=== PATIENT | male | born 1945 | race Caucasian/White ===

== ENCOUNTER 2017-06-21 16:26 | Inpatient (IN) ==
--- NOTE | 2017-06-22 16:46 | Internal Med History&Physical ---
Date of Encounter: 06/22/17 Time of Encounter: 16:44 Assessment and Plan (1) Cerebrovascular accident Current visit: No Status: Acute Patient's had a CVA. Please see CT reports etc. Qualifiers: Laterality of affected vessel: left Qualified Code(s): I63.312 - Cerebral infarction due to thrombosis of left middle cerebral artery (2) Sleep apnea Current visit: Yes Status: Acute No evidence he was using CPAP. But I will discuss this further. In reviewing the [facility] chart there was no data that would show that he was using CPAP Qualifiers: Sleep apnea type: other type Qualified Code(s): G47.39 - Other sleep apnea Internal Medicine - H&P: HPI Chief complaint: Mr. Sexton arrived here from [place] after suffering what appears Admitted From: Hospital to Hospital Transfer Plans for Post Hospital Care: Home History of present illness: Mr. Sexton is a 72 year old male Should see her for rehabilitation. He is doing fairly well. He has oxygen and I am going to take it off and check his room air sats. In addition he can elevate his left leg against gravity and has some movement in his left upper extremity. His speech is clear and he states no trouble swallowing Past Med Surg Social Fam HX - Past Medical History Medical history: coronary artery disease, CVA (Sleep apnea is listed as a diagnosis), diabetes, hyperlipidemia, hypertension, TIA Psychiatric history: no psych history - Social History Smoking Status: Former smoker Smokeless Tobacco Status: No Alcohol use: none Drug use: none Internal Medicine - H&P: Meds Amlodipine Besylate 10 mg PO DAILY 06/16/17 [History] Aspirin [Lo-Dose Aspirin EC] 81 mg PO DAILY 06/16/17 [History] Atorvastatin Calcium [Lipitor] 80 mg PO HS 06/16/17 [History] Carvedilol [Coreg] 25 mg PO BID 06/16/17 [History] Insulin ASPART [NovoLOG] 0 unit SQ TIDWM 06/16/17 [History] Insulin DETEMIR [Levemir] 0 unit SQ HS 06/16/17 [History] Losartan Potassium [Cozaar] 100 mg PO DAILY 06/16/17 [History] Metformin HCl [Fortamet] 500 mg PO DAILY 06/16/17 [History] Multivit-Min/Iron Fum/Folic AC [Qhkae-Wfvuioz-Qztavkzz Tablet] 1 each PO DAILY 06/16/17 [History] Omeprazole 20 mg PO DAILY 06/16/17 [History] Potassium Chloride [Klor-Con] 20 meq PO DAILY 06/16/17 [History] Potassium Citrate [Urocit-K] 10 meq PO DAILY 06/16/17 [History] Saxagliptin HCl [Onglyza] 5 mg PO DAILY 06/16/17 [History] buPROPion HCl [Zyban] 150 mg PO DAILY 06/16/17 [History] hydroCHLOROthiazide [Hydrochlorothiazide] 25 mg PO DAILY 06/16/17 [History] 3 Allergy/AdvReac Type Severity Reaction Status Date / Time No Known Allergies Allergy Verified 06/15/17 07:15 All Systems PM: A 10-system review of systems was performed and is negative for pertinent findings except as documented above in the HPI. - Constitutional Constitutional: as per HPI - EENT Eyes: as per HPI Ears: as per HPI Nose, mouth and throat: as per HPI - Breasts Breasts: as per HPI - Cardiovascular Cardiovascular ROS IM: as per HPI - Gastrointestinal Gastrointestinal: as per HPI - Genitourinary Genitourinary ROS male: as per HPI - Musculoskeletal Musculoskeletal ROS IM: other (Left sided upper and lower extremity weakness) - Integumentary Integumentary IM: as per HPI - Neurological Neurological ROS: focal weakness Additional comments: Said patient has left sided upper and lower extremity weakness - Psychiatric Psychiatric: as per HPI - Endocrine Endocrine IM: as per HPI Additional comments: Nation diabetic - Hematologic/Lymphatic Hematologic/Lymphatic: as per HPI - Allergic/Immunologic Allergic/Immunologic: as per HPI - Head Head exam: Present: atraumatic, normocephalic - Neck Neck exam general surgery: Present: supple, trachea midline. Absent: lymphadenopathy - Respiratory Respiratory exam: Present: CTAB. Absent: accessory muscle use, rales, rhonchi, wheezes - GI/Abdominal GI/Abdominal exam: Present: normal bowel sounds, soft, no peritoneal signs. Absent: distended, tenderness Internal Med - H&P Results - Labs Labs: Pending
[2017-06-22] MEDS ORDERED: Dextrose Gel 15 GM PO PRN ×2 (17:46)
[2017-06-22] MEDS ORDERED: D5% in Water 1,000 ML IVC PRN (17:46)
[2017-06-22] MEDS ORDERED: *HR* Dextrose 50 % in Water (Syg) 50 ML SYRINGE IVP PRN (17:46)
[2017-06-22] MEDS: Insulin LISPRO 300 UNITS/3 ML VIAL SQ SCH (21:17)
[2017-06-22] MEDS: *HR* Metformin 500 MG TABLET PO SCH (21:17)
[2017-06-23 05:37] LABS: Basophils # 0.1 K/mcL (0.0-0.2); Basophils % 0.7 %; Eosinophils # 0.4 K/mcL (0.0-0.6); Hematocrit 35.7 % (37.5-50.1); Hemoglobin 11.5 g/dL (12.9-16.9); Immature Granulocytes % 0.2 % (0-4); Lymphocytes # 1.4 K/mcL (0.6-4.6); Mean Corpuscular HGB Conc 32.2 g/dL (31.6-35.5); Mean Corpuscular Hemoglobin 25.5 pg (28.0-33.3); Mean Corpuscular Volume 79.2 fL (83.0-100.0); Mean Platelet Volume 10.4 fL (9.4-12.4); Monocytes # 0.5 K/mcL (0.0-1.3); Monocytes % 6.6 %; Neutrophils # 5.7 K/mcL (1.6-8.9); Platelet Count 267 K/mcL (140-400); Red Blood Count 4.51 M/mcL (4.19-5.50); Red Cell Distribution Width 16.1 % (11.5-14.5); Segmented Neutrophils % 70.5 %
[2017-06-23 05:42] LABS: INR 1.3; Prothrombin Time 14.4 Seconds (9.4-12.1)
[2017-06-23 05:45] LABS: Activated Partial Thrombo Time 30.4 Seconds (26.0-36.0)
[2017-06-23 05:51] LABS: BUN/Creatinine Ratio 20 (6-26); Blood Urea Nitrogen 18 mg/dL (8-26); Calcium 8.9 mg/dL (8.6-10.8); Carbon Dioxide 24 mEq/L (19-29); Chloride 103 mEq/L (98-109); Glucose 167 mg/dL (70-99); Osmolality,Calculated 296 (280-300); Potassium 3.7 mEq/L (3.5-4.5); Sodium 140 mEq/L (136-145); eGFR For African Americans > 60 (> 60); eGFR For Non-African Americans > 60 (> 60)
[2017-06-23] MEDS: hydroCHLOROthiazide 25 MG TABLET PO SCH (08:06)
[2017-06-23] MEDS: BuPROPion SR (12 HR) 150 MG TABLET PO SCH (08:06)
[2017-06-23] MEDS: Multivit/Ca/Min/Fe/FA 1 TAB TABLET PO SCH (08:06)
[2017-06-23] MEDS: amLODIPine 5 MG TABLET PO SCH (08:07)
[2017-06-23] MEDS: Potassium Citrate 10 MEQ TABLET.ER PO SCH (08:07)
[2017-06-23] MEDS: Aspirin Enteric Coated 325 MG Tablet PO SCH (08:07)
[2017-06-23] MEDS: *HR* Metformin 500 MG TABLET PO SCH ×2 (08:07→20:18)
[2017-06-23] MEDS: Insulin LISPRO 300 UNITS/3 ML VIAL SQ SCH ×4 (08:07→20:18)
--- NOTE | 2017-06-23 11:57 | Internal Med Progress Note ---
Date of Encounter: 06/23/17 Time of Encounter: 11:55 - Assessment and plan (1) Cerebrovascular accident Current Visit: No Status: Inactive Assessment and plan: Patient has ischemic CVA. His function though is good as a weakness on the left side and is working currently with a therapeutic Qualifiers: Laterality of affected vessel: left Qualified Code(s): I63.312 - Cerebral infarction due to thrombosis of left middle cerebral artery (2) Sleep apnea Current Visit: Yes Status: Acute Assessment and plan: History of sleep apnea but did not see anything where they have been using CPAP Qualifiers: Sleep apnea type: other type Qualified Code(s): G47.39 - Other sleep apnea - Time Spent With Patient less than 15 minutes - Subjective Interval history: Therapy has begun vital signs are stable patient is eating well and please see PT and OT and TR note - Constitutional Vitals: Temp Pulse Resp BP Pulse Ox 98.6 F 79 17 146/64 93 06/23/17 10:44 06/23/17 10:44 06/23/17 10:44 06/23/17 10:44 06/23/17 10:44 - Head Head exam: Present: atraumatic, normal inspection, normocephalic - Neck Neck exam general surgery: Present: supple, trachea midline. Absent: lymphadenopathy - Respiratory Respiratory exam: Present: CTAB. Absent: accessory muscle use, rales, rhonchi, wheezes - Cardiovascular Cardiovascular exam: Present: RRR, +S1, +S2. Absent: diastolic murmur, gallop, rubs, systolic murmur Internal Medicine: Result - Labs CBC & Chem 7: 06/23/17 05:20 06/23/17 05:20 Labs: Short CBC 06/23/17 Range/Units 05:20 WBC 8.1 (4.3-11.1) K/mcL Hgb 11.5 L (12.9-16.9) g/dL Hct 35.7 L (37.5-50.1) % Plt Count 267 (140-400) K/mcL Neutrophils # 5.7 (1.6-8.9) K/mcL BMP 06/23/17 05:20 Sodium 140 Potassium 3.7 Chloride 103 Carbon Dioxide 24 BUN 18 Creatinine 0.92 Glucose 167 H Calcium 8.9 Lab looks good - ABG Interpretation ABG results: PT/INR, D-dimer PT 14.4 Seconds (9.4-12.1) H 06/23/17 05:20 - VTE Documentation of Mechanical Device: Graduated compression elastic hosiery Consult Discharge Plan - Plan [facility]: [facility] [Primary Care Provider] -
[2017-06-23] MEDS: Benzonatate 100 MG CAPSULE PO PRN (20:18)
[2017-06-24] MEDS: Benzonatate 100 MG CAPSULE PO PRN ×2 (06:39→17:36)
[2017-06-24] MEDS: hydroCHLOROthiazide 25 MG TABLET PO SCH (08:41)
[2017-06-24] MEDS: Aspirin Enteric Coated 325 MG Tablet PO SCH (08:41)
[2017-06-24] MEDS: amLODIPine 5 MG TABLET PO SCH (08:41)
[2017-06-24] MEDS: BuPROPion SR (12 HR) 150 MG TABLET PO SCH (08:41)
[2017-06-24] MEDS: Multivit/Ca/Min/Fe/FA 1 TAB TABLET PO SCH (08:41)
[2017-06-24] MEDS: *HR* Metformin 500 MG TABLET PO SCH ×2 (08:41→22:04)
[2017-06-24] MEDS: Potassium Citrate 10 MEQ TABLET.ER PO SCH (08:41)
[2017-06-24] MEDS: NON-FORMULARY MEDICATION 1 EACH EACH PO SCH (08:42)
[2017-06-24] MEDS: Insulin LISPRO 300 UNITS/3 ML VIAL SQ SCH ×4 (08:42→22:48)
--- NOTE | 2017-06-24 14:48 | Internal Med Progress Note ---
Date of Encounter: 06/24/17 Time of Encounter: 14:42 - Assessment and plan (1) Cerebrovascular accident Current Visit: Yes Status: Inactive Assessment and plan: CVA is what brought the patient here. He has, some risk factors and some scattered vascular disease. Qualifiers: Laterality of affected vessel: left Qualified Code(s): I63.312 - Cerebral infarction due to thrombosis of left middle cerebral artery (2) Sleep apnea Current Visit: Yes Status: Acute Assessment and plan: Sleep apnea by history uses CPAP at home at night Qualifiers: Sleep apnea type: other type Qualified Code(s): G47.39 - Other sleep apnea - Time Spent With Patient less than 15 minutes - Subjective Interval history: Therapy has begun vital signs are stable patient is eating well and please see PT and OT and TR note. I am somewhat concerned whether he has any degree of dysphagia. He attributes coughing after eating sometimes to the Will discuss with speech and also he said his coughing is improved on the Tessalon Perles. I am going to do a CT of the chest just to rule out any sort of infiltrate or infection. . teeth not fitting properly - Constitutional Vitals: Temp Pulse Resp BP Pulse Ox 98.2 F 90 16 120/85 92 06/24/17 07:51 06/24/17 07:51 06/23/17 19:00 06/24/17 07:51 06/24/17 07:51 - Head Head exam: Present: atraumatic, normal inspection, normocephalic - Neck Neck exam general surgery: Present: supple, trachea midline. Absent: lymphadenopathy - Respiratory Respiratory exam: Present: CTAB. Absent: accessory muscle use, rales, rhonchi, wheezes - Cardiovascular Cardiovascular exam: Present: RRR, +S1, +S2. Absent: diastolic murmur, gallop, rubs, systolic murmur Internal Medicine: Result - Labs CBC & Chem 7: 06/23/17 05:20 06/23/17 05:20 Labs: Lab is stable - ABG Interpretation ABG results: PT/INR, D-dimer PT 14.4 Seconds (9.4-12.1) H 06/23/17 05:20 - VTE Documentation of Mechanical Device: Graduated compression elastic hosiery Consult Discharge Plan - Plan [facility]errals: [facility] [Primary Care Provider] -
[2017-06-25] MEDS: Insulin LISPRO 300 UNITS/3 ML VIAL SQ SCH ×4 (07:56→21:24)
[2017-06-25] MEDS: hydroCHLOROthiazide 25 MG TABLET PO SCH (08:05)
[2017-06-25] MEDS: *HR* Metformin 500 MG TABLET PO SCH ×2 (08:05→21:22)
[2017-06-25] MEDS: Potassium Citrate 10 MEQ TABLET.ER PO SCH (08:05)
[2017-06-25] MEDS: Aspirin Enteric Coated 325 MG Tablet PO SCH (08:06)
[2017-06-25] MEDS: BuPROPion SR (12 HR) 150 MG TABLET PO SCH (08:06)
[2017-06-25] MEDS: amLODIPine 5 MG TABLET PO SCH (08:06)
[2017-06-25] MEDS: Multivit/Ca/Min/Fe/FA 1 TAB TABLET PO SCH (08:06)
[2017-06-25] MEDS: NON-FORMULARY MEDICATION 1 EACH EACH PO SCH (08:07)
[2017-06-25] MEDS: Benzonatate 100 MG CAPSULE PO PRN (12:25)
--- NOTE | 2017-06-25 15:51 | Internal Med Progress Note ---
Date of Encounter: 06/25/17 Time of Encounter: 12:20 - Assessment and plan (1) Cerebrovascular accident (CVA) due to embolism of left middle cerebral artery Current Visit: Yes Status: Acute Assessment and plan: Improving. Will continue with antiplately therapy, control HTN, continue therapies. I encouraged him to participate in therapies as to the best of his ability. (2) Cough Current Visit: Yes Status: Acute Assessment and plan: Etiology is undetermined. CT chest negative for pneumonia. I encouraged him to monitor to associate with drinking problems, etc. Will follow and make sure nursing assesses. Will re-evaliuate swallow if suspicion exists. (3) Sleep apnea Current Visit: Yes Status: Acute Assessment and plan: Continue as at home with CPAP. Qualifiers: Qualified Code(s): G47.30 - Sleep apnea, unspecified - Subjective Interval history: Still coughing quite a bit. He cannot associate with drinking or eating but daughter believes that he is couighing more with drinking. Denies other acute problems. No fever, chills, dyspnea, etc. Denies other problems per ROS. Moved bowels with normal BM yesterday. - Constitutional Vitals: Temp Pulse Resp BP Pulse Ox 97.8 F 74 18 146/84 93 06/25/17 07:40 06/25/17 07:40 06/25/17 07:40 06/25/17 07:40 06/25/17 07:40 - Head Head exam: Present: atraumatic, normocephalic - Eye Eye exam: Present: PERRL, conjuntiva pink, sclera anicteric Pupils: Present: PERRL - Respiratory Respiratory exam: Present: CTAB. Absent: accessory muscle use, rales, rhonchi, wheezes - Cardiovascular Cardiovascular exam: Present: RRR. Absent: diastolic murmur, rubs, systolic murmur - GI/Abdominal GI/Abdominal exam: Present: normal bowel sounds, soft, no peritoneal signs. Absent: distended, tenderness Additional comments: Obese and therefore difficult to examine. Examined upright in chair. - Extremities Exam Extremities exam: Present: warm, radial pulses palpable and symmetrical. Absent : calf tenderness, cyanotic, pedal edema - Neurological Exam Neurological exam: Present: CN II-XII intact, oriented X3, facial droop. Absent : speech deficit Additional comments: Has mild to moderate right hemiparesis. Per patient, this is significantly improved vs. acute symptoms 10 days ago. Has no speech changes, mild right facial dropp, 45 right upper extremity weakness, 4/5 right lower extremity weakness. Internal Medicine: Result - Labs CBC & Chem 7: 06/23/17 05:20 06/23/17 05:20 - ABG Interpretation ABG results: PT/INR, D-dimer PT 14.4 Seconds (9.4-12.1) H 06/23/17 05:20 - Impressions Impressions Chest CT 06/24/17 14:57 IMPRESSION: No acute intrathoracic abnormality. Small hiatal hernia. D/ / Ramirez Valadez MD / Ramirez Valadez MD Interpreting Provider: Ramirez Valadez MD - VTE Documentation of Mechanical Device: Graduated compression elastic hosiery Consult Discharge Plan - Plan [facility]errals: [facility] [Primary Care Provider] -
[2017-06-26] MEDS: Multivit/Ca/Min/Fe/FA 1 TAB TABLET PO SCH (07:56)
[2017-06-26] MEDS: *HR* Metformin 500 MG TABLET PO SCH ×2 (07:57→21:31)
[2017-06-26] MEDS: BuPROPion SR (12 HR) 150 MG TABLET PO SCH (07:57)
[2017-06-26] MEDS: Potassium Citrate 10 MEQ TABLET.ER PO SCH (07:57)
[2017-06-26] MEDS: Aspirin Enteric Coated 325 MG Tablet PO SCH (07:58)
[2017-06-26] MEDS: amLODIPine 5 MG TABLET PO SCH (07:58)
[2017-06-26] MEDS: Insulin LISPRO 300 UNITS/3 ML VIAL SQ SCH ×4 (07:59→21:33)
[2017-06-26] MEDS: hydroCHLOROthiazide 25 MG TABLET PO SCH (08:00)
[2017-06-26] MEDS: NON-FORMULARY MEDICATION 1 EACH EACH PO SCH (08:00)
--- NOTE | 2017-06-26 15:34 | Internal Med Progress Note ---
Date of Encounter: 06/26/17 Time of Encounter: 12:55 - Assessment and plan (1) Cerebrovascular accident (CVA) due to embolism of left middle cerebral artery Current Visit: Yes Status: Acute Assessment and plan: Still slightly improved, vs. yesterday. (2) Cough Current Visit: Yes Status: Acute Assessment and plan: Still with multiple problems with cough. He and nurses aware that he shouild communicate if related to eating or drinking. He was doing better with Tessalon but ran out so we switched to Robitussin DM today. Tessalon should be returning, shortly per pharmacy's report to nursing. (3) Sleep apnea Current Visit: Yes Status: Acute Qualifiers: Sleep apnea type: unspecified type Qualified Code(s): G47.30 - Sleep apnea , unspecified - Subjective Interval history: More upbeat. Denies acute issues. Show me what he can do with his hand, vs. yesterday. - Constitutional Vitals: Temp Pulse Resp BP Pulse Ox 98.0 F 80 18 132/90 93 06/26/17 08:02 06/26/17 08:02 06/26/17 08:02 06/26/17 08:02 06/26/17 08:02 - Head Head exam: Present: atraumatic, normocephalic - Eye Eye exam: Present: PERRL, conjuntiva pink, sclera anicteric Pupils: Present: PERRL - Neck Neck exam general surgery: Present: supple, trachea midline - Respiratory Respiratory exam: Present: CTAB. Absent: accessory muscle use, rales, rhonchi, wheezes - Cardiovascular Cardiovascular exam: Present: RRR. Absent: diastolic murmur, systolic murmur - GI/Abdominal GI/Abdominal exam: Present: normal bowel sounds, soft, no peritoneal signs. Absent: distended, tenderness - Extremities Exam Extremities exam: Present: warm, radial pulses palpable and symmetrical. Absent : calf tenderness, cyanotic, pedal edema Internal Medicine: Result - Labs CBC & Chem 7: 06/23/17 05:20 06/23/17 05:20 - ABG Interpretation ABG results: PT/INR, D-dimer PT 14.4 Seconds (9.4-12.1) H 06/23/17 05:20 - VTE Documentation of Mechanical Device: Graduated compression elastic hosiery Consult Discharge Plan - Plan Referrals: [facility],PCP [Primary Care Provider] -
[2017-06-26] MEDS: Benzonatate 100 MG CAPSULE PO PRN (17:57)
[2017-06-27] MEDS: Benzonatate 100 MG CAPSULE PO PRN ×2 (01:50→21:47)
[2017-06-27 06:18] LABS: Basophils # 0.1 K/mcL (0.0-0.2); Basophils % 0.9 %; Eosinophils # 0.5 K/mcL (0.0-0.6); Hematocrit 34.1 % (37.5-50.1); Hemoglobin 11.2 g/dL (12.9-16.9); Immature Granulocytes % 0.2 % (0-4); Lymphocytes # 1.2 K/mcL (0.6-4.6); Lymphocytes % 14.8 %; Mean Corpuscular HGB Conc 32.8 g/dL (31.6-35.5); Mean Corpuscular Hemoglobin 25.9 pg (28.0-33.3); Mean Corpuscular Volume 78.9 fL (83.0-100.0); Mean Platelet Volume 10.6 fL (9.4-12.4); Monocytes # 0.6 K/mcL (0.0-1.3); Monocytes % 6.8 %; Neutrophils # 5.9 K/mcL (1.6-8.9); Platelet Count 249 K/mcL (140-400); Red Blood Count 4.32 M/mcL (4.19-5.50); Red Cell Distribution Width 16.4 % (11.5-14.5); Segmented Neutrophils % 71.3 %
[2017-06-27 06:29] LABS: BUN/Creatinine Ratio 17 (6-26); Blood Urea Nitrogen 16 mg/dL (8-26); Calcium 9.1 mg/dL (8.6-10.8); Carbon Dioxide 26 mEq/L (19-29); Chloride 102 mEq/L (98-109); Glucose 125 mg/dL (70-99); Osmolality,Calculated 293 (280-300); Potassium 3.7 mEq/L (3.5-4.5); Sodium 140 mEq/L (136-145); eGFR For African Americans > 60 (> 60); eGFR For Non-African Americans > 60 (> 60)
[2017-06-27] MEDS: Multivit/Ca/Min/Fe/FA 1 TAB TABLET PO SCH (10:22)
[2017-06-27] MEDS: *HR* Metformin 500 MG TABLET PO SCH ×2 (10:22→21:47)
[2017-06-27] MEDS: BuPROPion SR (12 HR) 150 MG TABLET PO SCH (10:22)
[2017-06-27] MEDS: Aspirin Enteric Coated 325 MG Tablet PO SCH (10:23)
[2017-06-27] MEDS: Potassium Citrate 10 MEQ TABLET.ER PO SCH (10:23)
[2017-06-27] MEDS: amLODIPine 5 MG TABLET PO SCH (10:23)
[2017-06-27] MEDS: hydroCHLOROthiazide 25 MG TABLET PO SCH (10:24)
[2017-06-27] MEDS: Insulin LISPRO 300 UNITS/3 ML VIAL SQ SCH ×4 (10:24→21:13)
[2017-06-27] MEDS: NON-FORMULARY MEDICATION 1 EACH EACH PO SCH (10:24)
--- NOTE | 2017-06-27 14:43 | Internal Med Progress Note ---
Date of Encounter: 06/27/17 Time of Encounter: 14:41 - Assessment and plan (1) Cerebrovascular accident Current Visit: Yes Status: Inactive Assessment and plan: Patient is undergoing rehabilitation with PT OT TR and speech Qualifiers: Laterality of affected vessel: left Qualified Code(s): I63.312 - Cerebral infarction due to thrombosis of left middle cerebral artery (2) Sleep apnea Current Visit: Yes Status: Acute Assessment and plan: Patient has noted this by history. Was not doing it at the referring hospital Qualifiers: Sleep apnea type: unspecified type Qualified Code(s): G47.30 - Sleep apnea , unspecified - Time Spent With Patient less than 15 minutes - Subjective Interval history: Therapy has begun vital signs are stable patient is eating well and please see PT and OT and TR note. I am somewhat concerned whether he has any degree of dysphagia. He attributes coughing after eating sometimes to the Will discuss with speech and also he said his coughing is improved on the Tessalon Perles. I am going to do a CT of the chest just to rule out any sort of infiltrate or infection. . teeth not fitting properly Mr. Dominic Sexton is getting bouts minimal assist to contact guard dissipating in all therapies and is showing improvement. - Constitutional Vitals: Temp Pulse Resp BP Pulse Ox 98.2 F 89 16 152/71 95 06/27/17 07:09 06/27/17 07:09 06/27/17 07:09 06/27/17 07:09 06/27/17 12:00 - Head Head exam: Present: atraumatic, normal inspection, normocephalic - Neck Neck exam general surgery: Present: supple, trachea midline. Absent: lymphadenopathy - Respiratory Respiratory exam: Present: CTAB. Absent: accessory muscle use, rales, rhonchi, wheezes - Cardiovascular Cardiovascular exam: Present: RRR, +S1, +S2. Absent: diastolic murmur, gallop, rubs, systolic murmur - GI/Abdominal GI/Abdominal exam: Present: normal bowel sounds, soft, no peritoneal signs. Absent: distended, tenderness Internal Medicine: Result - Labs CBC & Chem 7: 06/27/17 05:25 06/27/17 05:25 Labs: Short CBC 06/27/17 Range/Units 05:25 WBC 8.2 (4.3-11.1) K/mcL Hgb 11.2 L (12.9-16.9) g/dL Hct 34.1 L (37.5-50.1) % Plt Count 249 (140-400) K/mcL Neutrophils # 5.9 (1.6-8.9) K/mcL BMP 06/27/17 05:25 Sodium 140 Potassium 3.7 Chloride 102 Carbon Dioxide 26 BUN 16 Creatinine 0.95 Glucose 125 H Calcium 9.1 Lab looks stable - ABG Interpretation ABG results: PT/INR, D-dimer PT 14.4 Seconds (9.4-12.1) H 06/23/17 05:20 - VTE Documentation of Mechanical Device: Graduated compression elastic hosiery Consult Discharge Plan - Plan [facility]: [facility] [Primary Care Provider] -
[2017-06-28] MEDS: Aspirin Enteric Coated 325 MG Tablet PO SCH (08:22)
[2017-06-28] MEDS: hydroCHLOROthiazide 25 MG TABLET PO SCH (08:22)
[2017-06-28] MEDS: NON-FORMULARY MEDICATION 1 EACH EACH PO SCH (08:22)
[2017-06-28] MEDS: Insulin LISPRO 300 UNITS/3 ML VIAL SQ SCH ×4 (08:22→22:30)
[2017-06-28] MEDS: amLODIPine 5 MG TABLET PO SCH (08:22)
[2017-06-28] MEDS: Potassium Citrate 10 MEQ TABLET.ER PO SCH (08:22)
[2017-06-28] MEDS: Multivit/Ca/Min/Fe/FA 1 TAB TABLET PO SCH (08:22)
[2017-06-28] MEDS: *HR* Metformin 500 MG TABLET PO SCH ×2 (08:23→22:30)
[2017-06-28] MEDS: BuPROPion SR (12 HR) 150 MG TABLET PO SCH (08:23)
--- NOTE | 2017-06-28 13:38 | Internal Med Progress Note ---
Date of Encounter: 06/28/17 Time of Encounter: 13:36 - Assessment and plan (1) Sleep apnea Current Visit: Yes Status: Acute Assessment and plan: Use BiPAP at night. Qualifiers: Sleep apnea type: unspecified type Qualified Code(s): G47.30 - Sleep apnea , unspecified (2) Cerebrovascular accident (CVA) due to embolism of left middle cerebral artery Current Visit: Yes Status: Acute Assessment and plan: patient is here for CVA with em (3) Cough Current Visit: Yes Status: Acute Assessment and plan: Cough did a CT. In addition have speech see him to rule out any sort of aspiration. This existed prior to his coming here. And I did start some Tessalon Perles he states it is improved - Time Spent With Patient less than 15 minutes - Subjective Interval history: Therapy has begun vital signs are stable patient is eating well and please see PT and OT and TR note. I am somewhat concerned whether he has any degree of dysphagia. He attributes coughing after eating sometimes to the Will discuss with speech and also he said his coughing is improved on the Tessalon Perles. I am going to do a CT of the chest just to rule out any sort of infiltrate or infection. . teeth not fitting properly Mr. Dominic Sexton is getting bouts minimal assist to contact guard dissipating in all therapies and is showing improvement.. - Constitutional Vitals: Temp Pulse Resp BP Pulse Ox 97.7 F 79 20 145/78 95 06/28/17 07:34 06/28/17 07:34 06/28/17 07:34 06/28/17 07:34 06/28/17 07:34 - Head Head exam: Present: atraumatic, normal inspection, normocephalic - Neck Neck exam general surgery: Present: supple, trachea midline. Absent: lymphadenopathy - Respiratory Respiratory exam: Present: CTAB. Absent: accessory muscle use, rales, rhonchi, wheezes - Cardiovascular Cardiovascular exam: Present: RRR, +S1, +S2. Absent: diastolic murmur, gallop, rubs, systolic murmur Internal Medicine: Result - Labs CBC & Chem 7: 06/27/17 05:25 06/27/17 05:25 - ABG Interpretation ABG results: PT/INR, D-dimer PT 14.4 Seconds (9.4-12.1) H 06/23/17 05:20 - VTE Documentation of Mechanical Device: Graduated compression elastic hosiery Consult Discharge Plan - Plan [facility]errals: [facility] [Primary Care Provider] -
[2017-06-28] MEDS: Benzonatate 100 MG CAPSULE PO PRN (17:53)
[2017-06-29] MEDS: *HR* Metformin 500 MG TABLET PO SCH ×2 (09:57→21:32)
[2017-06-29] MEDS: BuPROPion SR (12 HR) 150 MG TABLET PO SCH (09:57)
[2017-06-29] MEDS: Insulin LISPRO 300 UNITS/3 ML VIAL SQ SCH ×3 (09:57→21:32)
[2017-06-29] MEDS: amLODIPine 5 MG TABLET PO SCH (09:57)
[2017-06-29] MEDS: Multivit/Ca/Min/Fe/FA 1 TAB TABLET PO SCH (09:58)
[2017-06-29] MEDS: Aspirin Enteric Coated 325 MG Tablet PO SCH (09:58)
[2017-06-29] MEDS: hydroCHLOROthiazide 25 MG TABLET PO SCH (09:58)
[2017-06-29] MEDS: Potassium Citrate 10 MEQ TABLET.ER PO SCH (09:58)
--- NOTE | 2017-06-29 11:23 | Psychological Evaluation ---
Date of Encounter: 06/29/17 Time of Encounter: 09:00 History of Present Illness History of present illness: Mr. Sexton is a 72 year old male Home Medications and Allergies Amlodipine Besylate 10 mg PO DAILY 06/16/17 [History] Aspirin [Lo-Dose Aspirin EC] 81 mg PO DAILY 06/16/17 [History] Atorvastatin Calcium [Lipitor] 80 mg PO HS 06/16/17 [History] Carvedilol [Coreg] 25 mg PO BID 06/16/17 [History] Insulin ASPART [NovoLOG] 0 unit SQ TIDWM 06/16/17 [History] Insulin DETEMIR [Levemir] 0 unit SQ HS 06/16/17 [History] Losartan Potassium [Cozaar] 100 mg PO DAILY 06/16/17 [History] Metformin HCl [Fortamet] 500 mg PO DAILY 06/16/17 [History] Multivit-Min/Iron Fum/Folic AC [Mvuce-Yxbxopx-Rcoexwoj Tablet] 1 each PO DAILY 06/16/17 [History] Omeprazole 20 mg PO DAILY 06/16/17 [History] Potassium Chloride [Klor-Con] 20 meq PO DAILY 06/16/17 [History] Potassium Citrate [Urocit-K] 10 meq PO DAILY 06/16/17 [History] Saxagliptin HCl [Onglyza] 5 mg PO DAILY 06/16/17 [History] buPROPion HCl [Zyban] 150 mg PO DAILY 06/16/17 [History] hydroCHLOROthiazide [Hydrochlorothiazide] 25 mg PO DAILY 06/16/17 [History] 3 Allergy/AdvReac Type Severity Reaction Status Date / Time No Known Allergies Allergy Verified 06/15/17 07:15 Social History - Social History Social History: The patient has been "over 30 years". He reports that he has been retired approximately 2 years. He had worked as a goat driver/manager of human resources. Senior Care has been somewhat difficult or him. Cognitive/Emotional Assessment - Emotional Status Additional Findings: Mr. Sexton reports that memory has always been problematic. He has compensated throughout his life a by writing things down and remembering what he needed to remember. He does not perceive further decline in memory post CVA. During clinical interview he was alert and oriented. He responded appropriately to questions asked. Responses were accurate and consistent with H&P. Expectations for rehab may not be realistic given length of stay. The patient expects to function close to premorbid level. He is however considering appropriate options for discharge plans. Assessment & Plan - Prognosis Prognosis: Good
--- NOTE | 2017-06-29 11:26 | Psychological Evaluation ---
Date of Encounter: 06/29/17 Time of Encounter: 09:00 History of Present Illness History of present illness: Mr. Sexton is a 72 year old male who sustained a CVA secondary to thrombosis of his left middle cerebral artery. PMH includes CAD, sleep apnea diabetes, HCL, HTN and TIA. Past Medical History - Psychiatric History Psychiatric history: Reports: no psych history Home Medications and Allergies Amlodipine Besylate 10 mg PO DAILY 06/16/17 [History] Aspirin [Lo-Dose Aspirin EC] 81 mg PO DAILY 06/16/17 [History] Atorvastatin Calcium [Lipitor] 80 mg PO HS 06/16/17 [History] Carvedilol [Coreg] 25 mg PO BID 06/16/17 [History] Insulin ASPART [NovoLOG] 0 unit SQ TIDWM 06/16/17 [History] Insulin DETEMIR [Levemir] 0 unit SQ HS 06/16/17 [History] Losartan Potassium [Cozaar] 100 mg PO DAILY 06/16/17 [History] Metformin HCl [Fortamet] 500 mg PO DAILY 06/16/17 [History] Multivit-Min/Iron Fum/Folic AC [Idbih-Jsxvmka-Afarvhvp Tablet] 1 each PO DAILY 06/16/17 [History] Omeprazole 20 mg PO DAILY 06/16/17 [History] Potassium Chloride [Klor-Con] 20 meq PO DAILY 06/16/17 [History] Potassium Citrate [Urocit-K] 10 meq PO DAILY 06/16/17 [History] Saxagliptin HCl [Onglyza] 5 mg PO DAILY 06/16/17 [History] buPROPion HCl [Zyban] 150 mg PO DAILY 06/16/17 [History] hydroCHLOROthiazide [Hydrochlorothiazide] 25 mg PO DAILY 06/16/17 [History] 3 Allergy/AdvReac Type Severity Reaction Status Date / Time No Known Allergies Allergy Verified 06/15/17 07:15
--- NOTE | 2017-06-29 11:27 | Psychological Evaluation ---
Date of Encounter: 06/29/17 History of Present Illness History of present illness: Mr. Sexton is a 72 year old male Home Medications and Allergies Amlodipine Besylate 10 mg PO DAILY 06/16/17 [History] Aspirin [Lo-Dose Aspirin EC] 81 mg PO DAILY 06/16/17 [History] Atorvastatin Calcium [Lipitor] 80 mg PO HS 06/16/17 [History] Carvedilol [Coreg] 25 mg PO BID 06/16/17 [History] Insulin ASPART [NovoLOG] 0 unit SQ TIDWM 06/16/17 [History] Insulin DETEMIR [Levemir] 0 unit SQ HS 06/16/17 [History] Losartan Potassium [Cozaar] 100 mg PO DAILY 06/16/17 [History] Metformin HCl [Fortamet] 500 mg PO DAILY 06/16/17 [History] Multivit-Min/Iron Fum/Folic AC [Wdgac-Tpltlcu-Rufxthpv Tablet] 1 each PO DAILY 06/16/17 [History] Omeprazole 20 mg PO DAILY 06/16/17 [History] Potassium Chloride [Klor-Con] 20 meq PO DAILY 06/16/17 [History] Potassium Citrate [Urocit-K] 10 meq PO DAILY 06/16/17 [History] Saxagliptin HCl [Onglyza] 5 mg PO DAILY 06/16/17 [History] buPROPion HCl [Zyban] 150 mg PO DAILY 06/16/17 [History] hydroCHLOROthiazide [Hydrochlorothiazide] 25 mg PO DAILY 06/16/17 [History] 3 Allergy/AdvReac Type Severity Reaction Status Date / Time No Known Allergies Allergy Verified 06/15/17 07:15 Procedures - Intervention Interventions: Other (Mr. Sexton does not require ongoing intervention at this time.)
--- NOTE | 2017-06-29 12:55 | Physical Med Progress Note ---
Date of Encounter: 06/29/17 Time of Encounter: 12:48 Physical Medicine-PN: Subj Interval history: PMR PCC Note Mr. Sexton was admitted following CVA. He was initially admitted to the swing service, but has made progress and was transferred to rehab. Patient is min A to CGA for ambulation with a paolo walker. His step length has improved on the left side. His endurance has improved. He is ambulating 50 feet with a paolo walker. He requires some cues for safety. Patient still fatigues easily. Patient is min A for upper body dressing, mod A for lower body dressing. He requires min to mod A for movement of the left arm. He has no issues with language or comprehension. He has some issues with poor memory. Reasoning is good. He has a mild left upper lip droop. No dysarthria. Will continue with intensive PT/OT/TR. ALLISON 07/20/17. - Constitutional Vitals: Vital Signs Temp Pulse Resp BP Pulse Ox 06/29/17 08:32 97.7 F 81 18 161/92 94 06/28/17 20:20 98.3 F 77 18 119/78 94 Intake and Output 06/28/17 06/29/17 06/29/17 23:59 07:59 15:59 Intake Total 250 / 250 360 / 360 Output Total 350 / 350 500 / 500 Balance -100 / -100 -500 / -500 360 / 360 Intake: Oral 250 / 250 360 / 360 Output: Urine 350 / 350 500 / 500 Other: Meal Breakfast Percent of Meal Consumed 100% # Urine Diapers 1 Blood Glucose* 186 124 Physical Medicine-PN: Obj Data - Labs CBC & Chem 7: 06/27/17 05:25 06/27/17 05:25 Labs: Laboratory Results - last 24 hr 06/28/17 06/28/17 06/28/17 07:27 11:59 16:21 POC Glucose 125 H 96 H 122 H 06/28/17 06/29/17 20:31 07:24 POC Glucose 186 H 124 H - ABG Interpretation ABG results: PT/INR, D-dimer PT 14.4 Seconds (9.4-12.1) H 06/23/17 05:20 - VTE Documentation of Mechanical Device: Graduated compression elastic hosiery Consult Discharge Plan - Plan [facility]: [facility] [Primary Care Provider] -
[2017-06-29] MEDS: NON-FORMULARY MEDICATION 1 EACH EACH PO SCH (17:28)
[2017-06-29] MEDS: Benzonatate 100 MG CAPSULE PO PRN ×2 (17:31→21:33)
[2017-06-30] MEDS: Insulin LISPRO 300 UNITS/3 ML VIAL SQ SCH ×4 (08:20→21:39)
[2017-06-30] MEDS: Aspirin Enteric Coated 325 MG Tablet PO SCH (08:20)
[2017-06-30] MEDS: *HR* Metformin 500 MG TABLET PO SCH ×2 (08:20→21:33)
[2017-06-30] MEDS: NON-FORMULARY MEDICATION 1 EACH EACH PO SCH (08:20)
[2017-06-30] MEDS: BuPROPion SR (12 HR) 150 MG TABLET PO SCH (08:21)
[2017-06-30] MEDS: hydroCHLOROthiazide 25 MG TABLET PO SCH (08:21)
[2017-06-30] MEDS: amLODIPine 5 MG TABLET PO SCH (08:21)
[2017-06-30] MEDS: Multivit/Ca/Min/Fe/FA 1 TAB TABLET PO SCH (08:21)
[2017-06-30] MEDS: Potassium Citrate 10 MEQ TABLET.ER PO SCH (08:21)
--- NOTE | 2017-06-30 12:55 | Internal Med Progress Note ---
Date of Encounter: 07/01/17 Time of Encounter: 12:53 - Assessment and plan (1) Sleep apnea Current Visit: Yes Status: Acute Assessment and plan: Patient does have a history of sleep apnea. I am going to see forgetting his CPAP machine Qualifiers: Sleep apnea type: unspecified type Qualified Code(s): G47.30 - Sleep apnea , unspecified (2) Cerebrovascular accident (CVA) due to embolism of left middle cerebral artery Current Visit: Yes Status: Acute Assessment and plan: Main reason further admission for rehabilitation. It is an ischemic CVA (3) Cough Current Visit: Yes Status: Acute Assessment and plan: Persistent cough may be some dysphagia Holly - Time Spent With Patient less than 15 minutes - Subjective Interval history: Patient still coughing productive but clear. CT was negative and other tests were negative and so speech and eye are present and going to agree to go ahead and make sure those of solid aspiration with modified barium swallow - Constitutional Vitals: Temp Pulse Resp BP Pulse Ox 97.5 F L 86 16 153/71 96 06/30/17 09:00 06/30/17 09:00 06/30/17 09:00 06/30/17 09:00 06/30/17 09:00 - Head Head exam: Present: atraumatic, normal inspection, normocephalic - Respiratory Respiratory exam: Present: CTAB. Absent: accessory muscle use, rales, rhonchi, wheezes - Cardiovascular Cardiovascular exam: Present: RRR, +S1, +S2. Absent: diastolic murmur, gallop, rubs, systolic murmur - GI/Abdominal GI/Abdominal exam: Present: normal bowel sounds, soft, no peritoneal signs. Absent: distended, tenderness Internal Medicine: Result - Labs CBC & Chem 7: 06/27/17 05:25 06/27/17 05:25 Labs: The lab is stable - ABG Interpretation ABG results: PT/INR, D-dimer PT 14.4 Seconds (9.4-12.1) H 06/23/17 05:20 - VTE Documentation of Mechanical Device: Graduated compression elastic hosiery Consult Discharge Plan - Plan [facility]errals: [facility] [Primary Care Provider] -
[2017-06-30] MEDS: Benzonatate 100 MG CAPSULE PO PRN ×2 (14:46→21:34)
[2017-07-01] MEDS: Benzonatate 100 MG CAPSULE PO PRN ×2 (05:40→22:23)
[2017-07-01] MEDS: Insulin LISPRO 300 UNITS/3 ML VIAL SQ SCH ×4 (08:28→22:20)
[2017-07-01] MEDS: Potassium Citrate 10 MEQ TABLET.ER PO SCH (08:28)
[2017-07-01] MEDS: *HR* Metformin 500 MG TABLET PO SCH ×2 (08:29→22:23)
[2017-07-01] MEDS: Multivit/Ca/Min/Fe/FA 1 TAB TABLET PO SCH (08:29)
[2017-07-01] MEDS: BuPROPion SR (12 HR) 150 MG TABLET PO SCH (08:29)
[2017-07-01] MEDS: hydroCHLOROthiazide 25 MG TABLET PO SCH (08:29)
[2017-07-01] MEDS: amLODIPine 5 MG TABLET PO SCH (08:29)
[2017-07-01] MEDS: Aspirin Enteric Coated 325 MG Tablet PO SCH (08:29)
[2017-07-01] MEDS: NON-FORMULARY MEDICATION 1 EACH EACH PO SCH (08:30)
--- NOTE | 2017-07-01 11:58 | Internal Med Progress Note ---
Date of Encounter: 07/01/17 Time of Encounter: 11:56 - Assessment and plan (1) Sleep apnea Current Visit: Yes Status: Acute Assessment and plan: I need to verify this using the CPAP. 9 Qualifiers: Sleep apnea type: unspecified type Qualified Code(s): G47.30 - Sleep apnea , unspecified (2) Cerebrovascular accident (CVA) due to embolism of left middle cerebral artery Current Visit: Yes Status: Acute Assessment and plan: This is the reason for his admission to the rehabilitation unit. (3) Cough Current Visit: Yes Status: Acute Assessment and plan: Wrecking on treatment. Patient does say it is better but it is not resolved - Time Spent With Patient less than 15 minutes - Subjective Interval history: Patient still coughing productive but clear. CT was negative and other tests were negative and so speech and eye are present and going to agree to go ahead and make sure those of solid aspiration with modified barium swallow - Constitutional Vitals: Temp Pulse Resp BP Pulse Ox 98.3 F 82 16 128/64 93 07/01/17 09:00 07/01/17 07:58 07/01/17 07:58 07/01/17 07:58 07/01/17 07:58 - Head Head exam: Present: atraumatic, normal inspection, normocephalic - Neck Neck exam general surgery: Present: supple, trachea midline. Absent: lymphadenopathy - Respiratory Respiratory exam: Present: CTAB. Absent: accessory muscle use, rales, rhonchi, wheezes - Cardiovascular Cardiovascular exam: Present: RRR, +S1, +S2. Absent: diastolic murmur, gallop, rubs, systolic murmur - GI/Abdominal GI/Abdominal exam: Present: normal bowel sounds, soft, no peritoneal signs. Absent: distended, tenderness Internal Medicine: Result - Labs CBC & Chem 7: 06/27/17 05:25 06/27/17 05:25 Labs: Lab is a stable - ABG Interpretation ABG results: PT/INR, D-dimer PT 14.4 Seconds (9.4-12.1) H 06/23/17 05:20 - VTE Documentation of Mechanical Device: Graduated compression elastic hosiery Consult Discharge Plan - Plan [facility]errals: [facility] [Primary Care Provider] -
[2017-07-02] MEDS: Insulin LISPRO 300 UNITS/3 ML VIAL SQ SCH ×4 (08:55→21:03)
[2017-07-02] MEDS: hydroCHLOROthiazide 25 MG TABLET PO SCH (09:03)
[2017-07-02] MEDS: BuPROPion SR (12 HR) 150 MG TABLET PO SCH (09:03)
[2017-07-02] MEDS: Multivit/Ca/Min/Fe/FA 1 TAB TABLET PO SCH (09:03)
[2017-07-02] MEDS: Potassium Citrate 10 MEQ TABLET.ER PO SCH (09:04)
[2017-07-02] MEDS: Aspirin Enteric Coated 325 MG Tablet PO SCH (09:04)
[2017-07-02] MEDS: amLODIPine 5 MG TABLET PO SCH (09:04)
[2017-07-02] MEDS: *HR* Metformin 500 MG TABLET PO SCH ×2 (09:04→21:04)
[2017-07-02] MEDS: NON-FORMULARY MEDICATION 1 EACH EACH PO SCH (09:13)
[2017-07-02] MEDS: Benzonatate 100 MG CAPSULE PO PRN ×2 (09:52→21:04)
--- NOTE | 2017-07-02 11:03 | Internal Med Progress Note ---
Date of Encounter: 07/02/17 Time of Encounter: 10:00 - Assessment and plan (1) Cerebrovascular accident (CVA) due to embolism of left middle cerebral artery Current Visit: Yes Status: Acute Assessment and plan: - This is the reason for his admission to the rehabilitation unit. - Worsened left facial droopiness, LUE weakness, and LLE weakness. Not a candidate for tPA given recent stroke (acut lacunar type right paramedian pontine infarct). - Will obtain a dstat head CT. - Given lack of MRI here until next Tuesday, the patient will most likely need to be transferred for further evaluation. We will coordinate for his after the patient's head CT. - Time Spent With Patient 25 - 35 minutes - Subjective Interval history: - Feeling increased left facial droopiness after waking up this morning around 7a. - Feeling increased left-sided upper and lower extremity weakness. - Did wake up in the middle of the night and felt fine at the time. - Also feels more tired, but also did not sleep for a few hours overnight, so uncertain whether this is due to lack of sleep or stroke-related effects. - Constitutional Vitals: Temp Pulse Resp BP Pulse Ox 97.6 F 88 16 143/69 92 07/02/17 07:31 07/02/17 07:31 07/02/17 07:31 07/02/17 07:31 07/02/17 07:31 Exam: Gen: A&Ox3, NAD. HEENT: NCAT. Neck: No palpable lymphadenopathy or thyromegaly. CV: RRR, S1S2. No murmur. Pulm: CTAB. Abd: (+)BS. NDNT. Neuro: Left facial droop noted. LUE and LLE weakness noted compared to right side. General sensation grossly intact and symmetrical. Skin: No rash. Ext: Trace pitting edema. Internal Medicine: Result - Labs CBC & Chem 7: 06/27/17 05:25 06/27/17 05:25 - ABG Interpretation ABG results: PT/INR, D-dimer PT 14.4 Seconds (9.4-12.1) H 06/23/17 05:20 - VTE Documentation of Mechanical Device: Graduated compression elastic hosiery Consult Discharge Plan - Plan [facility]errals: [facility] [Primary Care Provider] -
[2017-07-03] MEDS: hydroCHLOROthiazide 25 MG TABLET PO SCH (10:08)
[2017-07-03] MEDS: *HR* Metformin 500 MG TABLET PO SCH ×2 (10:08→21:03)
[2017-07-03] MEDS: Benzonatate 100 MG CAPSULE PO PRN ×2 (10:08→23:29)
[2017-07-03] MEDS: Potassium Citrate 10 MEQ TABLET.ER PO SCH (10:08)
[2017-07-03] MEDS: Insulin LISPRO 300 UNITS/3 ML VIAL SQ SCH ×4 (10:09→20:59)
[2017-07-03] MEDS: BuPROPion SR (12 HR) 150 MG TABLET PO SCH (10:09)
[2017-07-03] MEDS: amLODIPine 5 MG TABLET PO SCH (10:09)
[2017-07-03] MEDS: Aspirin Enteric Coated 325 MG Tablet PO SCH (10:10)
[2017-07-03] MEDS: NON-FORMULARY MEDICATION 1 EACH EACH PO SCH (10:12)
[2017-07-03] MEDS: Multivit/Ca/Min/Fe/FA 1 TAB TABLET PO SCH (10:13)
--- NOTE | 2017-07-03 13:32 | Internal Med Progress Note ---
Date of Encounter: 07/03/17 Time of Encounter: 13:00 - Assessment and plan (1) Cerebrovascular accident (CVA) due to embolism of left middle cerebral artery Current Visit: Yes Status: Acute Assessment and plan: - This is the reason for his admission to the rehabilitation unit. - Head CT and MRI obtained yesterday for worsened left facial droopiness + worsened LUE weakness + worsened LLE weakness; both were non-acute and the patient has improved symptomatically since then. - Continue to work with therapists. - Continue current medial management. - Time Spent With Patient less than 15 minutes - Subjective Interval history: - Feeling "great." - Left facial droop comes and goes at times. - LUE feeling better, LLE still a little weak. - Constitutional Vitals: Temp Pulse Resp BP Pulse Ox 98.1 F 80 16 144/85 91 07/03/17 07:50 07/03/17 07:50 07/03/17 07:50 07/03/17 07:50 07/03/17 07:50 Exam: Gen: A&Ox3, NAD. HEENT: NCAT. Neck: No palpable lymphadenopathy or thyromegaly. CV: RRR, S1S2. No murmur. Pulm: CTAB. Abd: (+)BS. NDNT. Neuro: Mild left facial droop noted. LUE and LLE weakness noted compared to right side. Skin: No rash. Ext: Trace pitting edema. Internal Medicine: Result - Labs CBC & Chem 7: 06/27/17 05:25 06/27/17 05:25 - ABG Interpretation ABG results: PT/INR, D-dimer PT 14.4 Seconds (9.4-12.1) H 06/23/17 05:20 - Impressions Impressions Head CT 07/02/17 10:41 IMPRESSION: Chronic small vessel ischemic changes. There is evidence of a pontine infarct just right of midline which is new when correlated to the prior CT. MRI would prove helpful for further assessment if clinically warranted. D/ / 07/02/2017 13:03:05 Markus Addison MD / [facility] Interpreting Provider: Markus Addison MD Brain MRI 07/02/17 12:49 IMPRESSION: Cerebral atrophy. Chronic small vessel ischemic changes. Remote lacunar infarcts. There are no areas of restricted diffusion to suggest an acute ischemic event. D/ / 07/02/2017 15:46:05 Rosie Mccain MD / [facility] Interpreting Provider: Rosie Mccain MD - Diagnostic Studies CT scan - head Additional comments: "BRAIN/VENTRICLES: There are areas of diminished attenuation in the white matter supratentorially indicative of chronic small vessel ischemic change. There is now abnormal decreased attenuation right of midline in the varinder likely reflecting subacute infarct when correlated to 06/16/2017. This is new when correlated to the MRI from 06/01/2012. No mass or hemorrhage is seen intracranially. No midline shift or hydrocephalus is noted. Atherosclerotic vascular calcifications are present. ORBITS: The visualized portion of the orbits demonstrate no acute abnormality. SINUSES: The visualized paranasal sinuses and mastoid air cells demonstrate no acute abnormality. SOFT TISSUES/SKULL: No acute abnormality of the visualized skull or soft tissues." MRI - head Additional comments: "Cerebral atrophy. Chronic small vessel ischemic changes. Remote lacunar infarcts. There are no areas of restricted diffusion to suggest an acute ischemic event." - VTE Documentation of Mechanical Device: Graduated compression elastic hosiery Consult Discharge Plan - Plan Referrals: [facility] [Primary Care Provider] -
[2017-07-04 05:43] LABS: Basophils # 0.1 K/mcL (0.0-0.2); Basophils % 0.6 %; Eosinophils # 0.5 K/mcL (0.0-0.6); Eosinophils % 5.7 %; Hematocrit 37.8 % (37.5-50.1); Hemoglobin 12.3 g/dL (12.9-16.9); Immature Granulocytes % 0.4 % (0-4); Lymphocytes # 1.4 K/mcL (0.6-4.6); Lymphocytes % 17.7 %; Mean Corpuscular HGB Conc 32.5 g/dL (31.6-35.5); Mean Corpuscular Hemoglobin 25.9 pg (28.0-33.3); Mean Corpuscular Volume 79.7 fL (83.0-100.0); Mean Platelet Volume 10.5 fL (9.4-12.4); Monocytes # 0.6 K/mcL (0.0-1.3); Monocytes % 7.8 %; Neutrophils # 5.4 K/mcL (1.6-8.9); Platelet Count 289 K/mcL (140-400); Red Blood Count 4.74 M/mcL (4.19-5.50); Red Cell Distribution Width 16.5 % (11.5-14.5); Segmented Neutrophils % 67.8 %
[2017-07-04 06:01] LABS: BUN/Creatinine Ratio 18 (6-26); Blood Urea Nitrogen 20 mg/dL (8-26); Calcium 8.9 mg/dL (8.6-10.8); Carbon Dioxide 27 mEq/L (19-29); Chloride 102 mEq/L (98-109); Glucose 112 mg/dL (70-99); Osmolality,Calculated 295 (280-300); Potassium 4.4 mEq/L (3.5-4.5); Sodium 141 mEq/L (136-145); eGFR For African Americans > 60 (> 60); eGFR For Non-African Americans > 60 (> 60)
[2017-07-04] MEDS: Insulin LISPRO 300 UNITS/3 ML VIAL SQ SCH ×4 (09:17→21:03)
[2017-07-04] MEDS: Potassium Citrate 10 MEQ TABLET.ER PO SCH (09:25)
[2017-07-04] MEDS: *HR* Metformin 500 MG TABLET PO SCH ×2 (09:25→21:02)
[2017-07-04] MEDS: BuPROPion SR (12 HR) 150 MG TABLET PO SCH (09:25)
[2017-07-04] MEDS: NON-FORMULARY MEDICATION 1 EACH EACH PO SCH (09:25)
[2017-07-04] MEDS: amLODIPine 5 MG TABLET PO SCH (09:26)
[2017-07-04] MEDS: Multivit/Ca/Min/Fe/FA 1 TAB TABLET PO SCH (09:26)
[2017-07-04] MEDS: Aspirin Enteric Coated 325 MG Tablet PO SCH (09:26)
[2017-07-04] MEDS: hydroCHLOROthiazide 25 MG TABLET PO SCH (09:26)
--- NOTE | 2017-07-04 14:31 | Internal Med Progress Note ---
Date of Encounter: 07/04/17 Time of Encounter: 14:28 - Assessment and plan (1) Sleep apnea Current Visit: Yes Status: Acute Assessment and plan: K the patient has not brought his CPAP machine and it does not seem like in [place] the refusing either Qualifiers: Sleep apnea type: unspecified type Qualified Code(s): G47.30 - Sleep apnea , unspecified (2) Cerebrovascular accident (CVA) due to embolism of left middle cerebral artery Current Visit: Yes Status: Acute Assessment and plan: Patient has CVA. He has multiple areas of microvascular disease etc. 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 Sexton states the cough is better but he does have spasms of coughing at times. We are going to schedule a modified barium swallow to make sure there is no aspiration. Chest CT was negative. The Tessalon as helped a little bit - Constitutional Vitals: Temp Pulse Resp BP Pulse Ox 98.1 F 76 16 163/72 92 07/04/17 07:13 07/04/17 07:13 07/04/17 07:13 07/04/17 07:13 07/04/17 07:13 - Head Head exam: Present: atraumatic, normal inspection, normocephalic - Neck Neck exam general surgery: Present: supple, trachea midline. Absent: lymphadenopathy - Respiratory Respiratory exam: Present: CTAB. Absent: accessory muscle use, rales, rhonchi, wheezes - Cardiovascular Cardiovascular exam: Present: RRR - GI/Abdominal GI/Abdominal exam: Present: normal bowel sounds, soft, no peritoneal signs. Absent: distended, tenderness Internal Medicine: Result - Labs CBC & Chem 7: 07/04/17 04:55 07/04/17 04:55 Labs: Short CBC 07/04/17 Range/Units 04:55 WBC 8.0 (4.3-11.1) K/mcL Hgb 12.3 L (12.9-16.9) g/dL Hct 37.8 (37.5-50.1) % Plt Count 289 (140-400) K/mcL Neutrophils # 5.4 (1.6-8.9) K/mcL BMP 07/04/17 04:55 Sodium 141 Potassium 4.4 Chloride 102 Carbon Dioxide 27 BUN 20 Creatinine 1.09 Glucose 112 H Calcium 8.9 - ABG Interpretation ABG results: PT/INR, D-dimer PT 14.4 Seconds (9.4-12.1) H 06/23/17 05:20 - VTE Documentation of Mechanical Device: Graduated compression elastic hosiery Consult Discharge Plan - Plan [facility]errals: [facility] [Primary Care Provider] -
[2017-07-05] MEDS: Insulin LISPRO 300 UNITS/3 ML VIAL SQ SCH ×4 (08:18→22:46)
[2017-07-05] MEDS: Potassium Citrate 10 MEQ TABLET.ER PO SCH (08:19)
[2017-07-05] MEDS: amLODIPine 5 MG TABLET PO SCH (08:20)
[2017-07-05] MEDS: *HR* Metformin 500 MG TABLET PO SCH ×2 (08:20→22:46)
[2017-07-05] MEDS: Multivit/Ca/Min/Fe/FA 1 TAB TABLET PO SCH (08:20)
[2017-07-05] MEDS: Aspirin Enteric Coated 325 MG Tablet PO SCH (08:20)
[2017-07-05] MEDS: hydroCHLOROthiazide 25 MG TABLET PO SCH (08:20)
[2017-07-05] MEDS: NON-FORMULARY MEDICATION 1 EACH EACH PO SCH (08:21)
[2017-07-05] MEDS: BuPROPion SR (12 HR) 150 MG TABLET PO SCH (08:21)
[2017-07-05] MEDS: Acetaminophen 325 MG TABLET PO PRN ×2 (11:34→17:14)
--- NOTE | 2017-07-05 15:49 | Internal Med Progress Note ---
Date of Encounter: 07/05/17 Time of Encounter: 15:47 - Assessment and plan (1) Sleep apnea Current Visit: Yes Status: Acute Assessment and plan: Currently not using his CPAP Qualifiers: Sleep apnea type: unspecified type Qualified Code(s): G47.30 - Sleep apnea , unspecified (2) Cerebrovascular accident (CVA) due to embolism of left middle cerebral artery Current Visit: Yes Status: Acute Assessment and plan: Obviously the reason he is here in rehabilitation. He is working with PT OT TR and speech therapies using electric stim is getting a little more flexion and extension of his left wrist. (3) Cough Current Visit: Yes Status: Acute Assessment and plan: It might be improved. It is nonproductive chest x-ray and other studies negative - Time Spent With Patient less than 15 minutes - Subjective Interval history: Sexton states he is doing better. Staff feel he is improving. - Constitutional Vitals: Temp Pulse Resp BP Pulse Ox 98.1 F 75 16 128/69 98 07/05/17 08:37 07/05/17 08:37 07/04/17 20:04 07/05/17 09:00 07/05/17 08:37 - Head Head exam: Present: atraumatic, normal inspection, normocephalic - Neck Neck exam general surgery: Present: supple, trachea midline. Absent: lymphadenopathy - Respiratory Respiratory exam: Present: CTAB. Absent: accessory muscle use, rales, rhonchi, wheezes - Cardiovascular Cardiovascular exam: Present: RRR, +S1, +S2. Absent: diastolic murmur, gallop, rubs, systolic murmur - GI/Abdominal GI/Abdominal exam: Present: normal bowel sounds, soft, no peritoneal signs. Absent: distended, tenderness Internal Medicine: Result - Labs CBC & Chem 7: 07/04/17 04:55 07/04/17 04:55 Labs: Labs look stable - ABG Interpretation ABG results: PT/INR, D-dimer PT 14.4 Seconds (9.4-12.1) H 06/23/17 05:20 - VTE Documentation of Mechanical Device: Graduated compression elastic hosiery Consult Discharge Plan - Plan [facility]errals: [facility] [Primary Care Provider] -
[2017-07-06] MEDS: Insulin LISPRO 300 UNITS/3 ML VIAL SQ SCH ×4 (08:07→22:36)
[2017-07-06] MEDS: BuPROPion SR (12 HR) 150 MG TABLET PO SCH (08:20)
[2017-07-06] MEDS: amLODIPine 5 MG TABLET PO SCH (08:21)
[2017-07-06] MEDS: *HR* Metformin 500 MG TABLET PO SCH ×2 (08:21→21:51)
[2017-07-06] MEDS: Multivit/Ca/Min/Fe/FA 1 TAB TABLET PO SCH (08:21)
[2017-07-06] MEDS: Aspirin Enteric Coated 325 MG Tablet PO SCH (08:21)
[2017-07-06] MEDS: Potassium Citrate 10 MEQ TABLET.ER PO SCH (08:21)
[2017-07-06] MEDS: NON-FORMULARY MEDICATION 1 EACH EACH PO SCH (08:21)
[2017-07-06] MEDS: hydroCHLOROthiazide 25 MG TABLET PO SCH (08:21)
--- NOTE | 2017-07-06 14:12 | Physical Med Progress Note ---
Date of Encounter: 07/06/17 Time of Encounter: 14:09 - Constitutional Vitals: Vital Signs Temp Pulse Resp BP Pulse Ox 07/06/17 08:00 97.8 F 76 16 116/66 93 07/05/17 19:00 98.0 F 82 16 147/75 93 Intake and Output 07/05/17 07/06/17 07/06/17 23:59 07:59 15:59 Intake Total 240 / 240 600 / 600 Output Total 700 / 700 Balance 240 / 240 -700 / -700 600 / 600 Intake: Oral 240 / 240 600 / 600 Output: Urine 700 / 700 Other: Meal Dinner Lunch Percent of Meal Consumed 100% 90% Stool Size Moderate Stool Consistency soft Stool Color Brown # Voids 1 Blood Glucose* 160 100 Physical Medicine-PN: Obj Data - Labs CBC & Chem 7: 07/04/17 04:55 07/04/17 04:55 Labs: Laboratory Results - last 24 hr 07/05/17 07/05/17 07/05/17 11:18 16:09 20:27 POC Glucose 159 H 103 H 160 H 07/06/17 07/06/17 07:41 12:12 POC Glucose 134 H 100 H - Impressions Impressions Videofluoroscopic Swallow 07/06/17 09:00 IMPRESSION: Mild transient penetration only with successive cups of thin barium from a cup. Otherwise no evidence of aspiration or penetration. Please see separate speech pathology report for full discussion of findings and recommendations. D/ / 07/06/2017 11:48:06 Warren Saucedo MD / [facility] Interpreting Provider: Warren Saucedo MD - ABG Interpretation ABG results: PT/INR, D-dimer PT 14.4 Seconds (9.4-12.1) H 06/23/17 05:20 - VTE Documentation of Mechanical Device: Graduated compression elastic hosiery Consult Discharge Plan - Plan Referrals: [facility] [Primary Care Provider] -
--- NOTE | 2017-07-06 14:16 | Physical Med Progress Note ---
Date of Encounter: 07/06/17 Time of Encounter: 14:13 Physical Medicine-PN: Subj Interval history: PMR PCC Note Patient is doing well. Plan to continue working with quad cane for ambulation. He is ambulating 150 feet. He has some weakness in the left hip. Transfers are SBA/CGA. Patient has had improvement in fine motor skills in left hand. Plan for family meeting tomorrow. Patient will continue with intensive PT/OT/ TR. He has met his speech theray goals. Plan for discharge to home 07/20/17. - Constitutional Vitals: Vital Signs Temp Pulse Resp BP Pulse Ox 07/06/17 08:00 97.8 F 76 16 116/66 93 07/05/17 19:00 98.0 F 82 16 147/75 93 Intake and Output 07/05/17 07/06/17 07/06/17 23:59 07:59 15:59 Intake Total 240 / 240 600 / 600 Output Total 700 / 700 Balance 240 / 240 -700 / -700 600 / 600 Intake: Oral 240 / 240 600 / 600 Output: Urine 700 / 700 Other: Meal Dinner Lunch Percent of Meal Consumed 100% 90% Stool Size Moderate Stool Consistency soft Stool Color Brown # Voids 1 Blood Glucose* 160 100 Physical Medicine-PN: Obj Data - Labs CBC & Chem 7: 07/04/17 04:55 07/04/17 04:55 Labs: Laboratory Results - last 24 hr 07/05/17 07/05/17 07/05/17 11:18 16:09 20:27 POC Glucose 159 H 103 H 160 H 07/06/17 07/06/17 07:41 12:12 POC Glucose 134 H 100 H - Impressions Impressions Videofluoroscopic Swallow 07/06/17 09:00 IMPRESSION: Mild transient penetration only with successive cups of thin barium from a cup. Otherwise no evidence of aspiration or penetration. Please see separate speech pathology report for full discussion of findings and recommendations. D/ / 07/06/2017 11:48:06 Warren Saucedo MD / [facility] Interpreting Provider: Warren Saucedo MD - ABG Interpretation ABG results: PT/INR, D-dimer PT 14.4 Seconds (9.4-12.1) H 06/23/17 05:20 - VTE Documentation of Mechanical Device: Graduated compression elastic hosiery Consult Discharge Plan - Plan Referrals: [facility] [Primary Care Provider] -
[2017-07-06] MEDS: Benzonatate 100 MG CAPSULE PO PRN (21:52)
[2017-07-07] MEDS: Insulin LISPRO 300 UNITS/3 ML VIAL SQ SCH ×4 (08:32→21:16)
[2017-07-07] MEDS: Potassium Citrate 10 MEQ TABLET.ER PO SCH (08:54)
[2017-07-07] MEDS: amLODIPine 5 MG TABLET PO SCH (08:55)
[2017-07-07] MEDS: BuPROPion SR (12 HR) 150 MG TABLET PO SCH (08:55)
[2017-07-07] MEDS: Aspirin Enteric Coated 325 MG Tablet PO SCH (08:55)
[2017-07-07] MEDS: hydroCHLOROthiazide 25 MG TABLET PO SCH (08:55)
[2017-07-07] MEDS: *HR* Metformin 500 MG TABLET PO SCH ×2 (08:55→21:15)
[2017-07-07] MEDS: NON-FORMULARY MEDICATION 1 EACH EACH PO SCH (08:56)
[2017-07-07] MEDS: Multivit/Ca/Min/Fe/FA 1 TAB TABLET PO SCH (08:56)
[2017-07-07] MEDS: Acetaminophen 325 MG TABLET PO PRN (12:39)
--- NOTE | 2017-07-07 14:26 | Internal Med Progress Note ---
Date of Encounter: 07/07/17 Time of Encounter: 14:24 - Assessment and plan (1) Sleep apnea Current Visit: Yes Status: Acute Assessment and plan: No problems with the sleep apnea and they did bring the CPAP Qualifiers: Sleep apnea type: unspecified type Qualified Code(s): G47.30 - Sleep apnea , unspecified (2) Cerebrovascular accident (CVA) due to embolism of left middle cerebral artery Current Visit: Yes Status: Acute Assessment and plan: Patient has CVA (3) Cough Current Visit: Yes Status: Acute Assessment and plan: Cough is still present but not as severe. Patient says CPHS was negative swelling test was negative but I wonder if he does not regurgitate some acid reflux at night typically takes some irritation and pulmonary treatment - Time Spent With Patient less than 15 minutes - Subjective Interval history: Darshan states he is doing better. Staff feel he is improving. Mr. Sexton is improving on a daily basis - Constitutional Vitals: Temp Pulse Resp BP Pulse Ox 99.4 F 86 20 171/82 95 07/07/17 07:00 07/07/17 07:00 07/07/17 07:00 07/07/17 07:00 07/07/17 07:00 - Head Head exam: Present: atraumatic, normocephalic - Neck Neck exam general surgery: Present: supple, trachea midline. Absent: lymphadenopathy - Respiratory Respiratory exam: Present: CTAB. Absent: accessory muscle use, rales, rhonchi, wheezes - Cardiovascular Cardiovascular exam: Present: RRR, +S1, +S2. Absent: diastolic murmur, gallop, rubs, systolic murmur - GI/Abdominal GI/Abdominal exam: Present: normal bowel sounds, soft, no peritoneal signs. Absent: distended, tenderness Internal Medicine: Result - Labs CBC & Chem 7: 07/04/17 04:55 07/04/17 04:55 Labs: Lab is good - ABG Interpretation ABG results: PT/INR, D-dimer PT 14.4 Seconds (9.4-12.1) H 06/23/17 05:20 - Impressions Impressions Brain MRI 07/02/17 12:49 IMPRESSION: Cerebral atrophy. Chronic small vessel ischemic changes. Remote lacunar infarcts. There are no areas of restricted diffusion to suggest an acute ischemic event. D/ / 07/02/2017 15:46:05 Rosie Mccain MD / [facility] Interpreting Provider: Rosie Mccain MD Videofluoroscopic Swallow 07/06/17 09:00 IMPRESSION: Mild transient penetration only with successive cups of thin barium from a cup. Otherwise no evidence of aspiration or penetration. Please see separate speech pathology report for full discussion of findings and recommendations. D/ / 07/06/2017 11:48:06 Warren Saucedo MD / [facility] Interpreting Provider: Warren Saucedo MD - VTE Documentation of Mechanical Device: Graduated compression elastic hosiery Consult Discharge Plan - Plan Referrals: [facility] [Primary Care Provider] -
[2017-07-07] MEDS: Benzonatate 100 MG CAPSULE PO PRN (17:55)
[2017-07-08] MEDS: Potassium Citrate 10 MEQ TABLET.ER PO SCH (08:15)
[2017-07-08] MEDS: Aspirin Enteric Coated 325 MG Tablet PO SCH (08:15)
[2017-07-08] MEDS: *HR* Metformin 500 MG TABLET PO SCH ×2 (08:16→20:36)
[2017-07-08] MEDS: amLODIPine 5 MG TABLET PO SCH (08:16)
[2017-07-08] MEDS: BuPROPion SR (12 HR) 150 MG TABLET PO SCH (08:16)
[2017-07-08] MEDS: hydroCHLOROthiazide 25 MG TABLET PO SCH (08:17)
[2017-07-08] MEDS: Multivit/Ca/Min/Fe/FA 1 TAB TABLET PO SCH (08:17)
[2017-07-08] MEDS: Insulin LISPRO 300 UNITS/3 ML VIAL SQ SCH ×4 (08:33→20:37)
[2017-07-08] MEDS: NON-FORMULARY MEDICATION 1 EACH EACH PO SCH (13:06)
--- NOTE | 2017-07-08 14:36 | Internal Med Progress Note ---
Date of Encounter: 07/08/17 Time of Encounter: 14:34 - Assessment and plan (1) Sleep apnea Current Visit: Yes Status: Acute Assessment and plan: Not using the CPAP here. Qualifiers: Sleep apnea type: unspecified type Qualified Code(s): G47.30 - Sleep apnea , unspecified (2) Cerebrovascular accident (CVA) due to embolism of left middle cerebral artery Current Visit: Yes Status: Acute Assessment and plan: Reason for the admission ischemic CVA (3) Cough Current Visit: Yes Status: Acute Assessment and plan: Abdomen heard much about the cough and has improved - Time Spent With Patient less than 15 minutes - Subjective Interval history: Darshan states he is doing better. Staff feel he is improving. Mr. Sexton is improving on a daily basis. The or family are bringing in 5 hour energy drinks that he apparently drinks 5 a day at home. I am going to ask him to stop doing that. - Constitutional Vitals: Temp Pulse Resp BP Pulse Ox 97.9 F 90 18 131/74 94 07/08/17 07:10 07/08/17 07:10 07/08/17 07:10 07/08/17 07:10 07/08/17 07:10 - Head Head exam: Present: atraumatic, normal inspection, normocephalic - Neck Neck exam general surgery: Present: supple, trachea midline. Absent: lymphadenopathy - Respiratory Respiratory exam: Present: CTAB. Absent: accessory muscle use, rales, rhonchi, wheezes - Cardiovascular Cardiovascular exam: Present: RRR, +S1, +S2. Absent: diastolic murmur, gallop, rubs, systolic murmur Internal Medicine: Result - Labs CBC & Chem 7: 07/04/17 04:55 07/04/17 04:55 Labs: Patient is stable and improving .lab is stable. - ABG Interpretation ABG results: PT/INR, D-dimer PT 14.4 Seconds (9.4-12.1) H 06/23/17 05:20 - VTE Documentation of Mechanical Device: Graduated compression elastic hosiery Consult Discharge Plan - Plan Referrals: [facility] [Primary Care Provider] -
[2017-07-09] MEDS: Insulin LISPRO 300 UNITS/3 ML VIAL SQ SCH ×4 (08:05→20:59)
[2017-07-09] MEDS: Aspirin Enteric Coated 325 MG Tablet PO SCH (09:31)
[2017-07-09] MEDS: *HR* Metformin 500 MG TABLET PO SCH ×2 (09:32→20:57)
[2017-07-09] MEDS: Multivit/Ca/Min/Fe/FA 1 TAB TABLET PO SCH (09:32)
[2017-07-09] MEDS: hydroCHLOROthiazide 25 MG TABLET PO SCH (09:32)
[2017-07-09] MEDS: NON-FORMULARY MEDICATION 1 EACH EACH PO SCH (09:32)
[2017-07-09] MEDS: BuPROPion SR (12 HR) 150 MG TABLET PO SCH (09:32)
[2017-07-09] MEDS: amLODIPine 5 MG TABLET PO SCH (09:32)
[2017-07-09] MEDS: Potassium Citrate 10 MEQ TABLET.ER PO SCH (09:32)
--- NOTE | 2017-07-09 09:45 | Internal Med Progress Note ---
Date of Encounter: 07/09/17 Time of Encounter: 09:44 - Assessment and plan (1) Cerebrovascular accident (CVA) due to embolism of left middle cerebral artery Current Visit: Yes Status: Acute Assessment and plan: stable and getting rehab no acute issues at the present time (2) Sleep apnea Current Visit: Yes Status: Acute Assessment and plan: on CPAP no issues continue to monitor Qualifiers: Sleep apnea type: unspecified type Qualified Code(s): G47.30 - Sleep apnea , unspecified (3) Diabetes mellitus Current Visit: Yes Status: Chronic Assessment and plan: stable on Insulin Blood sugars are reasonable well controlled on insulin Qualifiers: Diabetes mellitus type: type 2 Diabetes mellitus complication status: with unspecified complications Diabetes mellitus halfway insulin use: with halfway use Qualified Code(s): E11.8 - Type 2 diabetes mellitus with unspecified complications; Z79.4 - termite control servicer (current) use of insulin; 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 Absent: severe distress - Eye Eye exam: Present: EOMI, PERRL, scleral icterus. Absent: conjuntiva pink, sclera anicteric - Neck Neck exam general surgery: Present: supple. Absent: tenderness, nuchal rigidity - Respiratory Respiratory exam: Present: CTAB. Absent: respiratory distress, rhonchi, stridor , wheezes, tachypnea Additional comments: hs some cough however lung examination almost normal few basal rale noted on right side - Cardiovascular Cardiovascular exam: Present: RRR, +S1, +S2. Absent: diastolic murmur, irregular rhythm, JVD, rubs, tachycardia - GI/Abdominal GI/Abdominal exam: Present: normal bowel sounds, soft. Absent: firm, guarding, rebound, rigid, tenderness Additional comments: obese soft - Extremities Exam Extremities exam: Present: full ROM, radial pulses palpable and symmetrical. Absent: pedal edema, tenderness, warm - Neurological Exam Neurological exam: Present: CN II-XII intact, oriented X3. Absent: no focal deficits, facial droop, speech deficit Additional comments: examination with some mild weakness on the right side otherwise no other evidence of any deficit Internal Medicine: Result - Labs CBC & Chem 7: 07/04/17 04:55 07/04/17 04:55 - ABG Interpretation ABG results: PT/INR, D-dimer PT 14.4 Seconds (9.4-12.1) H 06/23/17 05:20 - VTE Documentation of Mechanical Device: Graduated compression elastic hosiery Consult Discharge Plan - Plan [facility]: [facility] [Primary Care Provider[facility] -
[2017-07-10] MEDS: Insulin LISPRO 300 UNITS/3 ML VIAL SQ SCH ×4 (07:55→20:44)
[2017-07-10] MEDS: *HR* Metformin 500 MG TABLET PO SCH (08:19)
[2017-07-10] MEDS: BuPROPion SR (12 HR) 150 MG TABLET PO SCH (08:19)
[2017-07-10] MEDS: Aspirin Enteric Coated 325 MG Tablet PO SCH (08:19)
[2017-07-10] MEDS: Multivit/Ca/Min/Fe/FA 1 TAB TABLET PO SCH (08:19)
[2017-07-10] MEDS: amLODIPine 5 MG TABLET PO SCH (08:19)
[2017-07-10] MEDS: Potassium Citrate 10 MEQ TABLET.ER PO SCH (08:19)
[2017-07-10] MEDS: hydroCHLOROthiazide 25 MG TABLET PO SCH (08:20)
[2017-07-10] MEDS: NON-FORMULARY MEDICATION 1 EACH EACH PO SCH (08:24)
--- NOTE | 2017-07-10 08:28 | Internal Med Progress Note ---
Date of Encounter: 07/10/17 Time of Encounter: 08:26 - Assessment and plan (1) Cerebrovascular accident (CVA) due to embolism of left middle cerebral artery Current Visit: Yes Status: Acute Assessment and plan: stable and improving (2) Sleep apnea Current Visit: Yes Status: Acute Assessment and plan: no new issues uses CPAP Qualifiers: Sleep apnea type: unspecified type Qualified Code(s): G47.30 - Sleep apnea , unspecified (3) Diabetes mellitus Current Visit: Yes Status: Chronic Assessment and plan: blood sugars are reasonable well controlled he has been having cough on ARB will trial of hold .apparently he was on KATIA as well causing cough adjust other meds for his blood pressure as needed Qualifiers: Diabetes mellitus type: type 2 Diabetes mellitus complication status: with unspecified complications Diabetes mellitus custodial insulin use: with custodial use Qualified Code(s): E11.8 - Type 2 diabetes mellitus with unspecified complications; Z79.4 - halfway (current) use of insulin; Z79.4 - halfway ( current) use of insulin; 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 Absent: severe distress - Head Head exam: Present: atraumatic - Eye Eye exam: Present: EOMI, PERRL. Absent: conjuntiva pink, sclera anicteric - Neck Neck exam general surgery: Present: full ROM, supple. Absent: tenderness, nuchal rigidity - Respiratory Respiratory exam: Present: CTAB. Absent: chest wall tenderness, decreased breath sounds, rales, respiratory distress, rhonchi, stridor, wheezes, tachypnea - Cardiovascular Cardiovascular exam: Present: RRR, +S1, +S2. Absent: irregular rhythm, JVD, rubs, systolic murmur - GI/Abdominal GI/Abdominal exam: Present: normal bowel sounds, soft. Absent: distended, firm , guarding, rebound, rigid, tenderness - Extremities Exam Extremities exam: Present: radial pulses palpable and symmetrical. Absent: pedal edema, tenderness - Neurological Exam Neurological exam: Present: CN II-XII intact, oriented X3, strengths equal and symetr throughout. Absent: facial droop, speech deficit Additional comments: overall no new change noted Internal Medicine: Result - Labs CBC & Chem 7: 07/04/17 04:55 07/04/17 04:55 - ABG Interpretation ABG results: PT/INR, D-dimer PT 14.4 Seconds (9.4-12.1) H 06/23/17 05:20 - VTE Documentation of Mechanical Device: Graduated compression elastic hosiery Consult Discharge Plan - Plan [facility]errals: [facility] [Primary Care Provider] -
[2017-07-11 06:14] LABS: Basophils # 0.1 K/mcL (0.0-0.2); Basophils % 0.8 %; Eosinophils # 0.5 K/mcL (0.0-0.6); Eosinophils % 5.4 %; Hematocrit 37.2 % (37.5-50.1); Immature Granulocytes % 0.2 % (0-4); Lymphocytes # 1.3 K/mcL (0.6-4.6); Lymphocytes % 15.6 %; Mean Corpuscular HGB Conc 32.3 g/dL (31.6-35.5); Mean Corpuscular Hemoglobin 25.8 pg (28.0-33.3); Mean Corpuscular Volume 79.8 fL (83.0-100.0); Mean Platelet Volume 10.3 fL (9.4-12.4); Monocytes # 0.6 K/mcL (0.0-1.3); Monocytes % 7.1 %; Neutrophils # 5.9 K/mcL (1.6-8.9); Platelet Count 264 K/mcL (140-400); Red Blood Count 4.66 M/mcL (4.19-5.50); Red Cell Distribution Width 16.8 % (11.5-14.5); Segmented Neutrophils % 70.9 %
[2017-07-11 06:29] LABS: BUN/Creatinine Ratio 19 (6-26); Blood Urea Nitrogen 18 mg/dL (8-26); Calcium 8.5 mg/dL (8.6-10.8); Carbon Dioxide 27 mEq/L (19-29); Chloride 102 mEq/L (98-109); Glucose 122 mg/dL (70-99); Osmolality,Calculated 295 (280-300); Potassium 3.2 mEq/L (3.5-4.5); Sodium 141 mEq/L (136-145); eGFR For African Americans > 60 (> 60); eGFR For Non-African Americans > 60 (> 60)
[2017-07-11] MEDS: Insulin LISPRO 300 UNITS/3 ML VIAL SQ SCH ×3 (07:57→17:43)
[2017-07-11] MEDS: Aspirin Enteric Coated 325 MG Tablet PO SCH (08:16)
[2017-07-11] MEDS: Potassium Citrate 10 MEQ TABLET.ER PO SCH (08:16)
[2017-07-11] MEDS: Multivit/Ca/Min/Fe/FA 1 TAB TABLET PO SCH (08:16)
[2017-07-11] MEDS: BuPROPion SR (12 HR) 150 MG TABLET PO SCH (08:17)
[2017-07-11] MEDS: amLODIPine 5 MG TABLET PO SCH (08:17)
[2017-07-11] MEDS: NON-FORMULARY MEDICATION 1 EACH EACH PO SCH (08:17)
[2017-07-11] MEDS: hydroCHLOROthiazide 25 MG TABLET PO SCH (08:17)
[2017-07-11] MEDS: *HR* Metformin 500 MG TABLET PO SCH ×2 (09:48→17:40)
[2017-07-11] MEDS: Benzonatate 100 MG CAPSULE PO PRN (10:34)
--- NOTE | 2017-07-11 13:25 | Internal Med Progress Note ---
Date of Encounter: 07/11/17 Time of Encounter: 13:23 - Assessment and plan (1) Sleep apnea Current Visit: Yes Status: Acute Assessment and plan: His problem by history but he has not been using the CPAP in any of the hospitals Qualifiers: Sleep apnea type: unspecified type Qualified Code(s): G47.30 - Sleep apnea , unspecified (2) Cerebrovascular accident (CVA) due to embolism of left middle cerebral artery Current Visit: Yes Status: Acute Assessment and plan: See above (3) Cough Current Visit: Yes Status: Acute Assessment and plan: Because seems improved. - Time Spent With Patient less than 15 minutes - Subjective Interval history: Mr. Sexton is no complaints. He looks good gauze goodies interacting with the staff well. In the family's been warned about 5 hour energy drinks. He and his family have elected to go to [place] to stay with his daughter - Constitutional Vitals: Temp Pulse Resp BP Pulse Ox 97.7 F 79 16 150/66 93 07/11/17 07:27 07/11/17 07:27 07/11/17 07:27 07/11/17 07:27 07/11/17 07:27 General appearance: Present: A&O X 3, morbidly obese, pleasant, no acute distress, answers questions appropriately. Absent: severe distress - Head Head exam: Present: atraumatic, normal inspection, normocephalic - Respiratory Respiratory exam: Present: CTAB. Absent: accessory muscle use, rales, rhonchi, wheezes - Cardiovascular Cardiovascular exam: Present: RRR, +S1, +S2. Absent: diastolic murmur, gallop, rubs, systolic murmur Internal Medicine: Result - Labs CBC & Chem 7: 07/11/17 05:40 07/11/17 05:40 Labs: Short CBC 07/11/17 Range/Units 05:40 WBC 8.3 (4.3-11.1) K/mcL Hgb 12.0 L (12.9-16.9) g/dL Hct 37.2 L (37.5-50.1) % Plt Count 264 (140-400) K/mcL Neutrophils # 5.9 (1.6-8.9) K/mcL BMP 07/11/17 05:40 Sodium 141 Potassium 3.2 L Chloride 102 Carbon Dioxide 27 BUN 18 Creatinine 0.93 Glucose 122 H Calcium 8.5 L Habits stable. Follow potassium - ABG Interpretation ABG results: PT/INR, D-dimer PT 14.4 Seconds (9.4-12.1) H 06/23/17 05:20 - VTE Documentation of Mechanical Device: Graduated compression elastic hosiery Consult Discharge Plan - Plan [facility]errals: [facility] [Primary Care Provider] -
[2017-07-12] MEDS: Insulin LISPRO 300 UNITS/3 ML VIAL SQ SCH ×5 (02:20→20:42)
[2017-07-12] MEDS: hydroCHLOROthiazide 25 MG TABLET PO SCH (08:41)
[2017-07-12] MEDS: NON-FORMULARY MEDICATION 1 EACH EACH PO SCH (08:41)
[2017-07-12] MEDS: amLODIPine 5 MG TABLET PO SCH (08:41)
[2017-07-12] MEDS: BuPROPion SR (12 HR) 150 MG TABLET PO SCH (08:42)
[2017-07-12] MEDS: Aspirin Enteric Coated 325 MG Tablet PO SCH (08:42)
[2017-07-12] MEDS: *HR* Metformin 500 MG TABLET PO SCH ×2 (08:42→17:43)
[2017-07-12] MEDS: Multivit/Ca/Min/Fe/FA 1 TAB TABLET PO SCH (08:42)
[2017-07-12] MEDS: Potassium Citrate 10 MEQ TABLET.ER PO SCH (08:42)
--- NOTE | 2017-07-12 13:33 | Internal Med Progress Note ---
Date of Encounter: 07/12/17 Time of Encounter: 13:31 - Assessment and plan (1) Sleep apnea Current Visit: Yes Status: Acute Assessment and plan: Currently not using CPAP Qualifiers: Sleep apnea type: unspecified type Qualified Code(s): G47.30 - Sleep apnea , unspecified (2) Cerebrovascular accident (CVA) due to embolism of left middle cerebral artery Current Visit: Yes Status: Acute Assessment and plan: Reason for admission the rehabilitation unit doing well walking ambulating with a walker and everything is improved including the cough but he still has not sure why (3) Cough Current Visit: Yes Status: Acute - Time Spent With Patient less than 15 minutes - Subjective Interval history: Mr. Sexton was doing fine at R dinner and had no complaints but earlier he had a coughing fit and had him unresponsive episode for about 2030 seconds. An acute Valsalva where he was coughing and had like a cough diet by syncope. He resumed with no deficits [place] and so we will just have to watch that. - Constitutional Vitals: Temp Pulse Resp BP Pulse Ox 98.2 F 77 18 109/61 95 07/12/17 07:16 07/12/17 10:23 07/12/17 10:23 07/12/17 10:23 07/12/17 07:16 General appearance: Present: A&O X 3, morbidly obese, pleasant, no acute distress, answers questions appropriately. Absent: severe distress - Head Head exam: Present: atraumatic, normal inspection, normocephalic - Neck Neck exam general surgery: Present: supple, trachea midline. Absent: lymphadenopathy - Respiratory Respiratory exam: Present: CTAB. Absent: accessory muscle use, rales, rhonchi, wheezes - Cardiovascular Cardiovascular exam: Present: RRR, +S1, +S2. Absent: diastolic murmur, gallop, rubs, systolic murmur - GI/Abdominal GI/Abdominal exam: Present: normal bowel sounds, soft, no peritoneal signs. Absent: distended, tenderness Internal Medicine: Result - Labs CBC & Chem 7: 07/11/17 05:40 07/12/17 04:30 Labs: BMP 07/12/17 04:30 Potassium 3.0 L - ABG Interpretation ABG results: PT/INR, D-dimer PT 14.4 Seconds (9.4-12.1) H 06/23/17 05:20 - VTE Documentation of Mechanical Device: Graduated compression elastic hosiery Consult Discharge Plan - Plan [facility]errals: [facility] [Primary Care Provider] -
[2017-07-13 05:54] LABS: BUN/Creatinine Ratio 21 (6-26); Blood Urea Nitrogen 20 mg/dL (8-26); Calcium 8.5 mg/dL (8.6-10.8); Carbon Dioxide 27 mEq/L (19-29); Chloride 104 mEq/L (98-109); Glucose 129 mg/dL (70-99); Osmolality,Calculated 296 (280-300); Potassium 3.6 mEq/L (3.5-4.5); Sodium 141 mEq/L (136-145); eGFR For African Americans > 60 (> 60); eGFR For Non-African Americans > 60 (> 60)
[2017-07-13] MEDS: Insulin LISPRO 300 UNITS/3 ML VIAL SQ SCH ×4 (09:10→20:25)
[2017-07-13] MEDS: Potassium Citrate 10 MEQ TABLET.ER PO SCH (09:43)
[2017-07-13] MEDS: amLODIPine 5 MG TABLET PO SCH (09:43)
[2017-07-13] MEDS: *HR* Metformin 500 MG TABLET PO SCH ×2 (09:43→16:56)
[2017-07-13] MEDS: BuPROPion SR (12 HR) 150 MG TABLET PO SCH (09:43)
[2017-07-13] MEDS: Aspirin Enteric Coated 325 MG Tablet PO SCH (09:43)
[2017-07-13] MEDS: hydroCHLOROthiazide 25 MG TABLET PO SCH (09:43)
[2017-07-13] MEDS: Multivit/Ca/Min/Fe/FA 1 TAB TABLET PO SCH (09:44)
[2017-07-13] MEDS: Benzonatate 100 MG CAPSULE PO PRN ×2 (11:01→16:56)
[2017-07-13] MEDS: NON-FORMULARY MEDICATION 1 EACH EACH PO SCH (11:49)
--- NOTE | 2017-07-13 14:33 | Internal Med Progress Note ---
Date of Encounter: 07/13/17 Time of Encounter: 14:30 - Assessment and plan (1) Sleep apnea Current Visit: Yes Status: Acute Assessment and plan: Question of sleep apnea but no CPAP was brought in or recommend Qualifiers: Sleep apnea type: unspecified type Qualified Code(s): G47.30 - Sleep apnea , unspecified (2) Cerebrovascular accident (CVA) due to embolism of left middle cerebral artery Current Visit: Yes Status: Acute Assessment and plan: Reason for his rehabilitation. (3) Cough Current Visit: Yes Status: Acute Assessment and plan: I have not seen the patient coughed today. I think it is much improved and still not sure why he had it. Small chance that he is regurgitating small amounts and inhaling aggravating his trachea and upper airways. - Time Spent With Patient less than 15 minutes - Subjective Interval history: Mr. Sexton was doing fine at R dinner and had no complaints but earlier he had a coughing fit and had him unresponsive episode for about 2030 seconds. An acute Valsalva where he was coughing and had like a walking with a static device on his ankle help stabilize his foot and he is using the quad cane and walking without too much difficulty. syncope. He resumed with no deficits ambulating and so we will just have to watch that. - Constitutional Vitals: Temp Pulse Resp BP Pulse Ox 98.1 F 85 16 151/75 92 07/13/17 07:00 07/13/17 07:00 07/13/17 07:00 07/13/17 07:00 07/13/17 07:00 General appearance: Present: A&O X 3, morbidly obese, pleasant, no acute distress, answers questions appropriately. Absent: severe distress - Head Head exam: Present: atraumatic, normal inspection, normocephalic - Neck Neck exam general surgery: Present: supple, trachea midline. Absent: lymphadenopathy - Respiratory Respiratory exam: Present: CTAB. Absent: accessory muscle use, rales, rhonchi, wheezes - Cardiovascular Cardiovascular exam: Present: RRR, +S1, +S2. Absent: diastolic murmur, gallop, rubs, systolic murmur - GI/Abdominal GI/Abdominal exam: Present: normal bowel sounds, soft, no peritoneal signs. Absent: distended, tenderness Internal Medicine: Result - Labs CBC & Chem 7: 07/11/17 05:40 07/13/17 05:30 Labs: [facility] 07/13/17 05:30 Sodium 141 Potassium 3.6 Chloride 104 Carbon Dioxide 27 BUN 20 Creatinine 0.96 Glucose 129 H Calcium 8.5 L Lab is stable - ABG Interpretation ABG results: PT/INR, D-dimer PT 14.4 Seconds (9.4-12.1) H 06/23/17 05:20 - VTE Documentation of Mechanical Device: Graduated compression elastic hosiery Consult Discharge Plan - Plan [facility]errals: [facility] [Primary Care Provider] -
[2017-07-14] MEDS: *HR* Metformin 500 MG TABLET PO SCH ×2 (09:27→17:45)
[2017-07-14] MEDS: Potassium Citrate 10 MEQ TABLET.ER PO SCH (09:27)
[2017-07-14] MEDS: BuPROPion SR (12 HR) 150 MG TABLET PO SCH (09:28)
[2017-07-14] MEDS: amLODIPine 5 MG TABLET PO SCH (09:28)
[2017-07-14] MEDS: hydroCHLOROthiazide 25 MG TABLET PO SCH (09:29)
[2017-07-14] MEDS: Aspirin Enteric Coated 325 MG Tablet PO SCH (09:29)
[2017-07-14] MEDS: Multivit/Ca/Min/Fe/FA 1 TAB TABLET PO SCH (09:30)
[2017-07-14] MEDS: NON-FORMULARY MEDICATION 1 EACH EACH PO SCH (09:30)
[2017-07-14] MEDS: Insulin LISPRO 300 UNITS/3 ML VIAL SQ SCH ×4 (09:31→21:38)
--- NOTE | 2017-07-14 10:19 | Internal Med Progress Note ---
Date of Encounter: 07/14/17 Time of Encounter: 09:00 - Assessment and plan (1) Cerebrovascular accident (CVA) due to embolism of left middle cerebral artery Current Visit: Yes Status: Acute Assessment and plan: Improving and his rehabilitation is nearly complete. Anticipate discharge tomorrow, then he plas to move to [place] with his daughter. (2) Cough Current Visit: Yes Status: Acute Assessment and plan: Speech evaluation failed to revveal any evidence of coiugh from aspiration. He blames sinus congestion and he may be right. I advised early follow up with a PCP in [place] to avaluate and establish relationship. (3) Sleep apnea Current Visit: Yes Status: Acute Assessment and plan: Clinically stable. - Time Spent With Patient 25 - 35 minutes - Subjective Interval history: lLDoing well. Main complaint is sinus congestion and resultant coiugh. wants to have something done about it. Better with Robitussin and Tessalon ut isn't resolved and sometimes coughs to the point of "nearly passed out." No other interval complaints. Bowel and bladder function is fine. Denies CP, SOB, nusea , etc. No dyspnea. - Constitutional Vitals: Temp Pulse Resp BP Pulse Ox 98.2 F 82 16 147/81 95 07/14/17 07:00 07/14/17 07:00 07/14/17 07:00 07/14/17 07:00 07/14/17 07:00 General appearance: Present: A&O X 3, morbidly obese, pleasant, no acute distress, answers questions appropriately. Absent: severe distress - Head Head exam: Present: atraumatic, normocephalic - Eye Eye exam: Present: PERRL, conjuntiva pink, sclera anicteric Pupils: Present: PERRL - Respiratory Respiratory exam: Present: CTAB. Absent: accessory muscle use, rales, rhonchi, wheezes - Cardiovascular Cardiovascular exam: Present: RRR. Absent: diastolic murmur, systolic murmur - GI/Abdominal GI/Abdominal exam: Present: normal bowel sounds, soft, no peritoneal signs. Absent: distended, tenderness - Extremities Exam Extremities exam: Present: warm, radial pulses palpable and symmetrical. Absent : calf tenderness, cyanotic, pedal edema - Neurological Exam Neurological exam: Present: CN II-XII intact, oriented X3, no focal deficits. Absent: speech deficit Additional comments: Minimal left facial drop and left pper and lower extremities are 4++/5. Good RRAM. Much improved vs. my last visit. - Skin Skin exam: Present: dry, intact Internal Medicine: Result - Labs CBC & Chem 7: 07/11/17 05:40 07/13/17 05:30 - ABG Interpretation ABG results: PT/INR, D-dimer PT 14.4 Seconds (9.4-12.1) H 06/23/17 05:20 - VTE Documentation of Mechanical Device: Graduated compression elastic hosiery Consult Discharge Plan - Plan [facility]errals: [facility] [Primary Care Provider] -
[2017-07-15 07:49] VITALS: BP 154/77
[2017-07-15] MEDS: Insulin LISPRO 300 UNITS/3 ML VIAL SQ SCH ×2 (07:56→12:05)
[2017-07-15] MEDS: Potassium Citrate 10 MEQ TABLET.ER PO SCH (08:39)
[2017-07-15] MEDS: BuPROPion SR (12 HR) 150 MG TABLET PO SCH (08:40)
[2017-07-15] MEDS: Multivit/Ca/Min/Fe/FA 1 TAB TABLET PO SCH (08:40)
[2017-07-15] MEDS: Aspirin Enteric Coated 325 MG Tablet PO SCH (08:40)
[2017-07-15] MEDS: *HR* Metformin 500 MG TABLET PO SCH (08:40)
[2017-07-15] MEDS: amLODIPine 5 MG TABLET PO SCH (08:40)
[2017-07-15] MEDS: hydroCHLOROthiazide 25 MG TABLET PO SCH (08:40)
[2017-07-15] MEDS: NON-FORMULARY MEDICATION 1 EACH EACH PO SCH (08:41)
--- NOTE | 2017-07-15 09:09 | Internal Med Progress Note ---
Date of Encounter: 07/15/17 Time of Encounter: 09:25 - Assessment and plan (1) Cerebrovascular accident (CVA) due to embolism of left middle cerebral artery Current Visit: Yes Status: Acute Assessment and plan: Improving and he plas to move to [place] with his daughter. He understands the need to follow with a PCP in [place]. (2) Cough Current Visit: Yes Status: Acute Assessment and plan: Improved, as above. (3) Sleep apnea Current Visit: Yes Status: Acute Assessment and plan: Clinically stable. Qualifiers: Sleep apnea type: unspecified type Qualified Code(s): G47.30 - Sleep apnea , unspecified - Subjective Interval history: He's feeling better and denies changes. He's coughing less and is happy for that. There are no other interval complaints. Bowel and bladder function is fine. Denies CP, SOB, nausea, etc. No dyspnea. - Constitutional Vitals: Temp Pulse Resp BP Pulse Ox 98.3 F 90 18 154/77 92 07/15/17 07:48 07/15/17 07:48 07/15/17 07:48 07/15/17 07:48 07/15/17 07:48 General appearance: Present: A&O X 3, morbidly obese, pleasant, no acute distress, answers questions appropriately. Absent: severe distress - Head Head exam: Present: atraumatic, normocephalic - Eye Eye exam: Present: PERRL, conjuntiva pink, sclera anicteric Pupils: Present: PERRL - Neck Neck exam general surgery: Present: supple, trachea midline - Respiratory Respiratory exam: Present: CTAB. Absent: accessory muscle use, rales, rhonchi, wheezes - Cardiovascular Cardiovascular exam: Present: RRR. Absent: diastolic murmur, systolic murmur - GI/Abdominal GI/Abdominal exam: Present: normal bowel sounds, soft, no peritoneal signs. Absent: distended, tenderness Additional comments: Examined in chair and obese both of which limits abdominal examination. - Extremities Exam Extremities exam: Present: warm. Absent: calf tenderness, cyanotic - Neurological Exam Neurological exam: Present: CN II-XII intact, oriented X3, facial droop. Absent : speech deficit Additional comments: Unchanged vs. yesterday. Internal Medicine: Result - Labs CBC & Chem 7: 07/11/17 05:40 07/13/17 05:30 - ABG Interpretation ABG results: PT/INR, D-dimer PT 14.4 Seconds (9.4-12.1) H 06/23/17 05:20 - VTE Documentation of Mechanical Device: Graduated compression elastic hosiery Consult Discharge Plan - Plan [facility]errals: [facility] [Primary Care Provider] - Prescriptions: Benzonatate [Tessalon] 200 mg PO TID PRN #120 capsule PRN Reason: Cough Modafinil [Provigil] 100 mg PO 0800,1200 #30 tablet
--- NOTE | 2017-07-15 10:59 | Discharge Summary ---
Date of Encounter: 07/15/17 Time of Encounter: 10:40 - Discharge Diagnosis (1) Cerebrovascular accident (CVA) due to embolism of left middle cerebral artery Priority: Primary Status: Acute (2) Cough Priority: Secondary Status: Acute (3) Sleep apnea Priority: Secondary Status: Acute - Discharge Medications Home Medications: Amlodipine Besylate 10 mg PO DAILY 06/16/17 [History] Aspirin [Lo-Dose Aspirin EC] 81 mg PO DAILY 06/16/17 [History] Atorvastatin Calcium [Lipitor] 80 mg PO HS 06/16/17 [History] Carvedilol [Coreg] 25 mg PO BID 06/16/17 [History] Insulin ASPART [NovoLOG] 0 unit SQ TIDWM 06/16/17 [History] Insulin DETEMIR [Levemir] 0 unit SQ HS 06/16/17 [History] Losartan Potassium [Cozaar] 100 mg PO DAILY 06/16/17 [History] Metformin HCl [Fortamet] 500 mg PO DAILY 06/16/17 [History] Multivit-Min/Iron Fum/Folic AC [Nbcdr-Lyfgtwi-Mpqcrxli Tablet] 1 each PO DAILY 06/16/17 [History] Omeprazole 20 mg PO DAILY 06/16/17 [History] Potassium Chloride [Klor-Con] 20 meq PO DAILY 06/16/17 [History] Potassium Citrate [Urocit-K] 10 meq PO DAILY 06/16/17 [History] Saxagliptin HCl [Onglyza] 5 mg PO DAILY 06/16/17 [History] buPROPion HCl [Zyban] 150 mg PO DAILY 06/16/17 [History] hydroCHLOROthiazide [Hydrochlorothiazide] 25 mg PO DAILY 06/16/17 [History] Benzonatate [Tessalon] 200 mg PO TID PRN #120 capsule 07/15/17 [Rx] GuaiFENesin/Dextromethorphan [Robitussin/Dm] 10 ml PO Q4HR PRN udc 07/15/17 [Rx ] Modafinil [Provigil] 100 mg PO 0800,1200 #30 tablet 07/15/17 [Rx] Allergies/Adverse Reactions: 3 Allergy/AdvReac Type Severity Reaction Status Date / Time No Known Allergies Allergy Verified 06/15/17 07:15 Date of admission: 06/22/17 16:01 Primary care physician: [facility] Consults: 06/22/17 17:43 Consult to Occupational Therapy [CONS] Routine Comment: CVA Reason for Consult: CVA Consult to Physical Therapy [CONS] Routine Comment: CVA Reason for Consult: CVA Consult to Recreational Therapy [CONS] Routine Comment: Consult to Geographic Area Intelligence Officer [CONS] Routine Reason for SW Consult: CVA 06/22/17 17:45 Consult to Speech Therapy [CONS] Routine Comment: Evaluate, develop and implement POC Reason for Consult: CVA Call Completed: Yes 06/28/17 11:57 Consult to Psychology [CONS] Routine Consulting Provider: Kaylee Poole Reason for Consult: CVA Time Notified: 12:00 Call Completed: No - Patient Status Disposition: Home, Self-Care Condition: Good - Discharge Instructions Follow [facility] With: [facility] [Primary Care Provider[facility] - Hospital course: Mr. Sexton is a 72 year old male - Time Spent with Patient Total time spent providing and/or coordinating discharge services: - Constitutional Vitals: Temp Pulse Resp BP Pulse Ox 98.3 F 90 18 154/77 92 07/15/17 07:48 07/15/17 07:48 07/15/17 07:48 07/15/17 07:48 07/15/17 07:48 General appearance: Present: A&O X 3, morbidly obese, pleasant, no acute distress, answers questions appropriately. Absent: severe distress Exam: Still had mild left hemiparesis on eam; otherwise unremarkable. See Progress note, this date. - VTE Documentation of Mechanical Device: Graduated compression elastic hosiery
== END 2017-07-15 14:45 | disposition home or self-care (01) | DRG 57 ==
LOC: INPGRE 06-22 16:01
PROVIDERS: ADMIT Internal Medicine; ATTEND Internal Medicine

== ENCOUNTER 2022-06-16 16:21 | Observation (INO) ==
[2022-06-16 16:54] LABS: Basophils # 0.1 K/mcL (0.0-0.2); Basophils % 0.8 %; Eosinophils # 0.3 K/mcL (0.0-0.6); Eosinophils % 3.6 %; Hematocrit 43.7 % (37.5-50.1); Hemoglobin 14.2 g/dL (12.9-16.9); Immature Granulocytes % 0.2 % (0-4); Lymphocytes # 1.5 K/mcL (0.6-4.6); Lymphocytes % 16.5 %; Mean Corpuscular HGB Conc 32.5 g/dL (31.6-35.5); Mean Corpuscular Hemoglobin 27.5 pg (28.0-33.3); Mean Corpuscular Volume 84.5 fL (83.0-100.0); Mean Platelet Volume 10.6 fL (9.4-12.4); Monocytes # 0.7 K/mcL (0.0-1.3); Monocytes % 7.8 %; Neutrophils # 6.6 K/mcL (1.6-8.9); Platelet Count 264 K/mcL (140-400); Red Blood Count 5.17 M/mcL (4.19-5.50); Red Cell Distribution Width 15.3 % (11.5-14.5); Segmented Neutrophils % 71.1 %; White Blood Count 9.3 K/mcL (4.3-11.1)
[2022-06-16 17:09] LABS: INR 1.4; Prothrombin Time 15.3 Seconds (9.4-12.1)
[2022-06-16 17:11] LABS: Albumin 3.8 g/dL (3.5-5.7); Albumin/Globulin Ratio 1.1 (1.1-2.2); Bilirubin,Total 0.6 mg/dL (0.3-1.0); Calcium 8.9 mg/dL (8.6-10.3); Globulin 3.6 g/dL (2.4-3.5); Potassium 2.9 mEq/L (3.5-5.1); Total Protein 7.4 g/dL (6.4-8.9)
[2022-06-16] MEDS ORDERED: Potassium Chloride Elixir 20 MEQ/15 ML UDC PO ONE (17:39)
[2022-06-16] MEDS ORDERED: Ondansetron 4 MG/2 ML VIAL IVP PRN ×2 (18:13→19:10)
[2022-06-16] MEDS ORDERED: Naloxone 0.4 MG/ML INJ IVP PRN ×2 (18:13→19:10)
[2022-06-16] MEDS ORDERED: Acetaminophen 325 MG TABLET PO PRN ×2 (18:13→19:10)
[2022-06-16] MEDS ORDERED: cloNIDine HCL 0.1 MG TABLET PO PRN (19:48)
[2022-06-16] MEDS ORDERED: D5% in Water 1,000 ML IVC PRN (19:49)
[2022-06-16] MEDS ORDERED: *HR* Dextrose 50 % in Water (Syg) 50 ML SYRINGE IVP PRN (19:49)
[2022-06-16] MEDS ORDERED: Dextrose Gel 15 GM/37.5 ML TUBE PO PRN ×2 (19:49)
[2022-06-16] MEDS: Budesonide/Formoterol 160/4.5 1 PUFF INH IH SCH (21:34)
[2022-06-16] MEDS: Metoprolol 100 MG TABLET PO SCH (21:58)
[2022-06-16] MEDS: Insulin LISPRO 300 UNITS/3 ML VIAL SUBQ SCH (21:59)
[2022-06-16] MEDS ORDERED: Ipratropium/Albuterol Neb 3 ML IH PRN (23:23)
[2022-06-17 04:17] LABS: Mean Corpuscular HGB Conc 32.5 g/dL (31.6-35.5); Mean Corpuscular Hemoglobin 27.3 pg (28.0-33.3); Mean Corpuscular Volume 83.9 fL (83.0-100.0); Mean Platelet Volume 10.5 fL (9.4-12.4); Platelet Count 223 K/mcL (140-400); Red Blood Count 4.77 M/mcL (4.19-5.50); Red Cell Distribution Width 15.5 % (11.5-14.5); White Blood Count 8.8 K/mcL (4.3-11.1)
[2022-06-17 04:32] LABS: Chol/HDL Ratio 4.8 (0-4.9)
[2022-06-17 04:35] LABS: Calcium 8.2 mg/dL (8.6-10.3); Potassium 2.8 mEq/L (3.5-5.1)
[2022-06-17] MEDS ORDERED: ALOGLIPTIN BENZOATE 25 MG PO SCH (09:00)
[2022-06-17] MEDS ORDERED: Aspirin Enteric Coated 81 MG Tablet PO SCH ×2 (09:00)
[2022-06-17] MEDS ORDERED: Multivit/Ca/Min/Fe/FA 1 TAB TABLET PO SCH (09:00)
[2022-06-17] MEDS ORDERED: amLODIPine 5 MG TABLET PO SCH (09:00)
[2022-06-17] MEDS ORDERED: hydroCHLOROthiazide 25 MG TABLET PO SCH (09:00)
[2022-06-17] MEDS ORDERED: Insulin DETEMIR 100 UNIT/ML X5UNITS SUBQ SCH (09:00)
[2022-06-17] MEDS ORDERED: BuPROPion SR (12 HR) 150 MG TABLET PO SCH (09:00)
[2022-06-17] MEDS: Metoprolol 100 MG TABLET PO SCH ×2 (09:05→19:53)
[2022-06-17] MEDS: Insulin LISPRO 300 UNITS/3 ML VIAL SUBQ SCH ×4 (09:10→19:53)
[2022-06-17 10:26] LABS: Estimated Average Glucose 186 mg/dl; Hemoglobin A1C 8.1 %
[2022-06-17] MEDS: Budesonide/Formoterol 160/4.5 1 PUFF INH IH SCH (11:40)
[2022-06-17 19:45] VITALS: BP 147/82; PULSE 66; RESP 18; TEMP 98.9; O2SAT 92
== END 2022-06-17 20:05 | disposition short-term general hospital (02) ==
LOC: EMEROOGRE 16:21 → INPGRE 16:21
PROVIDERS: ADMIT Family Medicine; ATTEND Family Medicine